=== PATIENT | female | born 1935 | race Caucasian/White ===

== ENCOUNTER 2018-03-30 18:47 | Outpatient (REF) | payer MEDICARE, SELFPAY ==
[2018-03-30 20:23] LABS: Bilirubin Negative (Negative); Blood Trace-intact (Negative); Clarity Sl Cloudy; Glucose Negative (Negative); Ketones Negative (Negative); Leukocyte Esterase Trace (Negative); Nitrite Negative (Negative); Urobilinogen 0.2 EU/dL (Up TO 0.2); pH 5.5 (5-8)
[2018-03-30 20:29] LABS: TSH (W/Ref FT4) 0.65 uIU/mL (0.358-3.74)
[2018-03-30 20:42] LABS: Bacteria Negative HPF (Negative); C & S Indicated? No/Sq. Contamination; Casts Negative LPF (Negative); Crystals Many Amorphous HPF (Negative); Epithelial Cells Moderate HPF (Negative); Mucus Negative (Negative); Other Cells Negative (Negative)
== END 2018-03-30 19:07 ==
LOC: NCHCN 18:47
PROVIDERS: PCP Nurse Practitioner Family; Visit Provider Nurse Practitioner Family
DX: E03.9 Hypothyroidism, unspecified (principal); N39.0 Urinary tract infection, site not specified
CPT/HCPCS: 81003; 81015; 84443

== ENCOUNTER → 2018-04-22 13:51 | Outpatient (BNVA) | payer MEDICARE, OTHER, SELFPAY | PROVIDERS: PCP Nurse Practitioner Family; Referring Provider Nurse Practitioner Family; Visit Provider Nurse Practitioner Gerontology | DX: R31.29 Other microscopic hematuria (principal) | CPT/HCPCS: 81003; 99204; 99215 ==

== ENCOUNTER 2018-04-27 00:43 | Outpatient (CLI) | payer MEDICARE, OTHER, SELFPAY ==
--- NOTE | 2018-04-27 09:03 | DI.CT_ITS ---
SYMPTOMS/DIAGNOSIS: MICROHEMATURIA, R31.21 CT SCAN OF THE ABDOMEN AND PELVIS: CT scan of the abdomen and pelvis was performed prior to and following the uneventful administration of intravenous contrast material. CT urogram was performed. There are no priors for comparison. Noncontrast CT scan was performed. There is artifact in the pelvis due to the patient's left total hip replacement. There is also slight patient motion artifact present. There is no evidence of nephrolithiasis, ureterolithiasis or hydronephrosis. No stones are seen in the urinary bladder. There is a gallstone present. Following contrast administration, venous imaging of the abdomen and pelvis was performed. No acute infiltrates are seen in the lung bases. Note is made of a small hiatal hernia. The liver is normal in size. No suspicious hepatic masses are seen. The portal and superior mesenteric veins are unremarkable. There is no biliary ductal dilatation present. The pancreas, spleen and adrenal glands are unremarkable. There are multiple bilateral simple renal cysts present. No solid renal mass is seen. There is normal and symmetric enhancement of the kidneys. The reproductive organs are unremarkable. There is atherosclerosis of the abdominal aorta, but no aneurysmal dilatation is present. No significant abdominal or pelvic adenopathy, ascites or pneumoperitoneum is present. There is a moderate amount of retained stool in the colon. There is mild increased attenuation surrounding portions of the ascending and descending colon and a question of mild bowel wall thickening present. A mild colitis should be considered. This may be inflammatory or infectious in nature. Moderately severe degenerative changes are seen in the lumbar spine. 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 There is also severe central spinal canal stenosis present. Delayed images of the abdomen and pelvis were performed. Incidental note is made of a right nearly complete duplicated collecting system. There is opacification of the collecting systems in their entirety. No evidence of obstruction is seen. Within the urinary bladder, no filling defects are appreciated. The urinary bladder wall appears unremarkable. IMPRESSION: 1. No evidence of nephrolithiasis or hydronephrosis. 2. 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 3. Cholelithiasis. No biliary ductal dilatation. 4. Question of mild pericolonic inflammatory changes in the ascending and descending colon suspicious for inflammatory or infectious colitis. Please correlate clinically. 5. Bilateral renal cysts. No evidence of a solid renal mass. 6. Moderately severe degenerative changes in the lumbar spine resulting in central spinal canal and neural foraminal stenosis. The findings are most marked at L4-L5.
[2018-04-27 09:36] LABS: CREATININE 0.67 mg/dL (0.55-1.02)
[2018-04-27] MEDS: Omnipaque 350 MG/ML 100 ML BTL IJ (10:08)
== END 2018-04-27 01:03 ==
PROVIDERS: PCP Nurse Practitioner Family; Visit Provider Nurse Practitioner Gerontology
DX: R31.21 Asymptomatic microscopic hematuria (principal); K80.20 Calculus of gallbladder without cholecystitis without obstruction; M47.816 Spondylosis without myelopathy or radiculopathy, lumbar region; Z13.89 Encounter for screening for other disorder
CPT/HCPCS: 74178; 82565; J3490

== ENCOUNTER → 2018-05-03 15:22 | Outpatient (BNVA) | payer MEDICARE, OTHER, SELFPAY | PROVIDERS: PCP Nurse Practitioner Family; Visit Provider Nurse Practitioner Gerontology | DX: Z71.2 Person consulting for explanation of examination or test findings (principal); R31.29 Other microscopic hematuria; N28.1 Cyst of kidney, acquired | CPT/HCPCS: 99213 ==

== ENCOUNTER 2018-05-20 06:17 | Day surgery (SDC) | payer MEDICARE, OTHER, SELFPAY ==
[2018-05-20 06:38] VITALS: BP 104/55; PULSE 80; RESP 18; TEMP 36.6; O2SAT 97
[2018-05-20] MEDS: Lactated Ringers 1,000 ML 80 ML IV (06:45)
[2018-05-20] MEDS: Sulfameth/Trimeth DS TAB 1 TAB PO (06:55)
[2018-05-20] MEDS: Lidocaine 2% Jelly 6 ML SYR (07:50)
--- NOTE | 2018-05-20 08:02 | PDOC.DSDIS_ITS ---
Discharge Plan Disposition Patient Disposition: HOME Condition: Stable Discharge Details Reason For Visit: MICROHEMATURIA Attending Provider: Robert Wise Primary Care Provider: Lelia Roque Home Meds and New Rx's Prescriptions: No Action ciprofloxacin HCl 100 mg tablet 100 mg PO .qhs RF: 0 diphenhydramine HCl [Shikha-[place] Plus Allergy] 25 MG tablet 25 mg PO PRN RF: 0 levothyroxine 112 mcg Capsule 112 mcg PO DAILY RF: 0 aspirin [Aspir-81] 81 mg Tablet,Delayed Release (Dr/Ec) 81 mg PO DAILY RF: 0 Discharge Instructions Additional Instructions: Pt will need yearly urinalysis (either with PCP or with our office) Activity:: Activity as Tolerated Diet:: As Tolerated Discharge Orders Discharge Orders: Discharge Order (Routine); Ordered 05/20/18 Ordered By: Robert Wise
[2018-05-20] MEDS: Phenazopyridine 200 MG TAB PO (08:24)
[2018-05-20 08:39] VITALS: BP 108/52; PULSE 57; RESP 18; TEMP 36.4; O2SAT 97
--- NOTE | 2018-05-20 10:19 | ROE_ITS ---
REPORT OF OPERATIVE PROCEDURE DATE OF PROCEDURE May 20, 2018 PREOPERATIVE DIAGNOSIS Microscopic hematuria. POSTOPERATIVE DIAGNOSIS Microscopic hematuria. PROCEDURE Cystoscopy. SURGEON Robert Wise M.D. ANESTHESIA MAC with local. COMPLICATIONS None. ESTIMATED BLOOD LOSS Minimal. HISTORY This is an 82-year-old woman who is identified as having microscopic hematuria. She was evaluated wit h a CT urogram, which showed some simple renal cysts, but no solid masses and no stones. She presents now for cystoscopy to complete her hematuria workup. OPERATIVE REPORT The patient was brought to the Operating Room on 05/20/2018. She was given Monitored Anesthesia Care and placed in the dorsal lithotomy position. Her genitalia was prepped. A #17-Iraqi rigid cystoscope was passed through the urethra, into the bladder. The bladder was inspe cted using both a 30 and a 70-degree lens. The base of the bladder had descended somewhat consistent with a small cystocele. There were some in flammatory changes in the mucosa visible between the trigone and urethral meatus. These had the phys ical appearance of cystitis cystica. Both ureteral orifices appeared normal. The remainder of the bladder showed no papillary or nodular l esions. Both ureteral orifices showed clear urine effluxing. These findings were all confirmed with re-inspec tion of the bladder using a 30-degree lens. The bladder was emptied and the cystoscope was withdrawn. Pelvic examination revealed a very small ca runcle. Based on today's examination, there is no evidence of significant uropathology. The current AUA recom mendation includes a yearly urinalysis and a repeat workup in three to five years if the hematuria pe rsists. CC: Lelia Roque N.P.
== END 2018-05-20 09:45 | disposition home or self-care (01) ==
PROVIDERS: PCP Nurse Practitioner Family; Visit Provider Urology
PROC: 0TJB8ZZ Inspection of Bladder, Via Natural or Artificial Opening Endoscopic (ICD-10-PCS; CPT 52000; principal; 2018-05-20 07:30)
DX: R31.29 Other microscopic hematuria (principal); F17.210 Nicotine dependence, cigarettes, uncomplicated
CPT/HCPCS: 52000

== ENCOUNTER 2018-05-31 08:31 | Day surgery (SDC) | payer MEDICARE, OTHER, SELFPAY ==
--- NOTE | 2018-05-30 16:58 | POEE_ITS ---
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 She presented with complaints of progressive decreased vision in both eyes at both distance and near. On examination she was noted to have significant bilateral nuclear cortical and posterior subcapsular cataracts, as well as epiretinal membranes OU with macular pigmentary changes. The option of cataract surgery was offered to the patient and she wished to proceed, understanding that postoperative visual acuity will be limited by the pre-existing maculopathy. NOTE: The Chief Complaint, HPI, Past Medical History, Past Surgical History, Family History, Social History, Medications, and complete Ophthalmic Exam with detailed Assessment and Plan have already been documented in the patient's outpatient ophthalmic record and are not covered again in detail here. PFSH Medical History Cortical cataract of right eye (Acute) Epiretinal membrane (ERM) of right eye (Chronic) Nuclear sclerotic cataract of right eye (Acute) Posterior subcapsular age-related cataract, right eye (Acute) Social History Smoking/Tobacco Use Status: Current every day Meds Home Medications Medication Instructions Recorded Confirmed Type diphenhydramine HCl [Shikha-[place] 25 mg PO PRN 03/30/17 05/28/18 History Plus Allergy] ciprofloxacin 100 mg tablet 100 mg PO .qhs tab 04/22/18 05/03/18 History aspirin [Aspir-81] 81 mg PO DAILY 05/18/18 05/28/18 History levothyroxine 112 mcg PO DAILY 05/18/18 05/28/18 History Allergies Allergy/AdvReac Type Severity Reaction Status Date / Time No Known Allergies Allergy Unverified 05/20/18 06:24 Exam OCULAR EXAM:: Most recent ocular examination reveals corrected visual acuity of 20/50 right eye, 20/40 left eye. Pupils equal, round, and reactive without afferent pupillary defect. Intraocular pressure is 12 OD, 13 OS. Extraocular motility is normal. Slit-lamp examination reveals pupil dilating to 5.5 mm OU. 2+ nuclear with 2+ cortical and 2+ posterior subcapsular cataracts OU with poor red reflex inferiorly. Dilated funduscopic examination shows disc cupping of 0.4 OU with good color. The retinal vasculature is normal. Both maculae show epiretinal membranes with a granular appearance. Peripheral retina and vitreous is normal. BRIGHTNESS ACUITY TESTING (BAT):: Brightness acuity testing of the right eye is 20/50. Low is 20/60. Medium is 20/60. Height is 20/100. Assessment and Plan (1) Posterior subcapsular age-related cataract, right eye: Current visit: No Status: Acute Assessment: Visually significant cataract, right eye. Plan: Cataract extraction with intraocular lens implantation, right eye (2) Nuclear sclerotic cataract of right eye: Current visit: No Status: Acute Assessment: Visually significant cataract, right eye. Plan: Cataract extraction with intraocular lens implantation, right eye (3) Cortical cataract of right eye: Current visit: No Status: Acute Assessment: Visually significant cataract, right eye. Plan: Cataract extraction with intraocular lens implantation, right eye Note: NOTE:: The details of the planned surgery, including the risks, indications,limitations,expectations,outcome and possible complications were explained to the patient. The patient understands the complications including, but not limited to: infection, hemorrhage, posterior dislocation of the lens or nuclear fragments which may require the intervention of a vitreoretinal surgeon, possible loss of the eye, or from anesthetic complications. The patient has been made aware of the option of not having surgery, that vision following surgery may not be equal to that prior to surgery, and that the planned surgery may not achieve the intended results. Following this discussion, which the patient appeared to understand, the patient wishes to proceed with cataract surgery with lens implantation of the affected eye to improve and maximize vision.
[2018-05-31 08:46] VITALS: BP 114/60; PULSE 73; RESP 18; TEMP 36.4; O2SAT 99
[2018-05-31] MEDS: Tropicam./Phenyleph. (1/2.5%) 5 ML BTL OD ×3 (08:57→09:06)
[2018-05-31] MEDS: Tetracaine 0.5% 4 ML BTL OD ×4 (08:57→09:45)
[2018-05-31] MEDS: Lidocaine 2% Jelly 6 ML SYR (09:45)
[2018-05-31] MEDS: Lidocaine 1% Pres-Free 5 ML VIAL (09:49)
[2018-05-31] MEDS: Balanced Salt Soln.-PLUS 500 ML BAG (09:49)
[2018-05-31] MEDS: Povidone-Iodine Ophth 30 ML BTL (09:53)
[2018-05-31] MEDS: Trypan Blue 0.06% 0.5 ML SYR (09:54)
--- NOTE | 2018-05-31 10:15 | W.PM.DSUDISC ---
Discharge Plan Discharge Details Attending Provider: Ivan Al Primary Care Provider: Lelia Roque Home Meds and New Rx's Prescriptions: No Action ciprofloxacin HCl 100 mg tablet 100 mg PO .qhs RF: 0 diphenhydramine HCl [Shikha-[place] Plus Allergy] 25 MG tablet 25 mg PO PRN RF: 0 levothyroxine 112 mcg Capsule 112 mcg PO DAILY RF: 0 aspirin [Aspir-81] 81 mg Tablet,Delayed Release (Dr/Ec) 81 mg PO DAILY RF: 0 Discharge Instructions Stand Alone Forms: Post-op Topical Cataract, William Carranza (DSU) DS: Diagnosis Discharge Diagnosis (1) Status post cataract extraction and insertion of intraocular lens of right eye: Status: Chronic
--- NOTE | 2018-05-31 10:18 | ROE_ITS ---
Date of service: 05/31/18 Time of Service: 10:17 Operative Note DATE OF PROCEDURE: 05/31/18 PRE-OP DIAGNOSIS: Cataract, right eye, with poor red reflex PROCEDURE: Cataract extraction using phacoemulsification with intraocular lens implantation, right eye, using capsular staining with Vision Blue SURGEON: vIan Al ANESTHESIA: MAC (with local sub-tenon's anesthetic injection) PATHOLOGY: none sent COMPLICATIONS: None Patient was transported to: same day Patient's condition: stable Implants: Olivier and Olivier / [employer] Tecnis [id number] Indications: Progressive visual loss due to cataract, right eye Procedure Description: CATARACT SURGERY OPERATIVE REPORT PREOPERATIVE DIAGNOSIS: 1. Nuclear/cortical/posterior subcapsular cataract, right eye 2. Poor red reflex secondary to #1 POSTOPERATIVE DIAGNOSIS: Same OPERATION: 1. Cataract extraction using phacoemulsification with posterior chamber intraocular lens implant, right eye. 2. Capsular staining with Vision Blue IOL: IOL Biodiesel Engineering Manager/Model: Olivier & Olivier / MANJEET Tecnis [id number] IOL Power: + 23.50 diopters IOL Serial Number: [id number] Optic Diameter: 6.0mm Haptic/Overall Diameter: 13.0mm PHACO INFO: Byron StoredIQurion Vision System with OZil and Active Fluidics Cumulative Dispersed Energy (CDE): 8.66 seconds SURGEON: Ivan Al MD, SHAMA ANESTHESIA: Monitored Anesthesia Care (MAC), with local sub-tenon's anesthetic infiltration COMPLICATIONS: None SPECIMENS: None INDICATIONS FOR PROCEDURE: The patient is an 82-year old lady with history of diminished visual acuity in her right eye who was noted to have a significant nuclear cortical and posterior subcapsular cataract with visual acuity of 20/50. The option of cataract surgery was offered to the patient and she wished to proceed. PROCEDURE: The correct surgical eye was identified and marked as the right eye and the pupil was dilated in the preoperative area using mydriatics, cycloplegics, and NSAIDS (except in aspirin allergic patients). The dilated pupil size was 6.5 mm. Oral sedation was administered in the form of an Imprimis MKO Melt (midazolam 3mg/ketamine 25mg/ondansetron 2mg). The patient was brought to the operating room where cardiopulmonary monitoring was instituted and surgical time-out was performed, confirming the correct operative eye and IOL power. Topical anesthesia was administered and ophthalmic povidone-iodine 5% was instilled into the conjunctival fornices. Lidocaine gel was applied to the corn ea and the donovan-ocular area was prepped with Betadine 10% solution and draped in the usual sterile fashion for intraocular surgery, including an aperture drape. A Tegaderm transparent film dressing was cut in half and used to cover the lashes and lid margins. Care was taken to sequester the lashes and lid margins under the Tegaderm dressing. A lid speculum was placed between the lids of the operative eye and the James-Ramila operating microscope was maneuvered into position. Meena scissors were then used to make a conjunctival buttonhole approximately 6mm posterior to the limbus in the inferonasal quadrant. Blunt dissection was carried out to expose bare sclera, and a blunt-tipped sub-tenon?s anesthesia cannula was introduced and passed posteriorly along the globe where non-preserve d plain lidocaine was injected into posterior sub-Tenon?s space. A sideport knife was used to make a paracentesis port at the 7:00 position. Air was injected into the anterior chamber, followed by Vision Blue, which was painted over the anterior capsule and then irrigated out with BSS. The anterior chamber was filled with Healon GV. A 2.4mm keratome knife was used to create a half- thickness groove at the limbus and then to construct a three-plane near-clear corneal tunnel extending 2.0mm into clear cornea at the 10:00 position. A flap was raised on the anterior capsule and capsulorhexis forceps were used to complete a continuous curvilinear capsulorhexis of 5.0 mm. Balanced salt solution was then used to perform cortical cleaving hydrodissection and nuclear hydrodelineation until the lens could be freely rotated within the capsular bag. The lens nucleus was then disassembled and removed within the capsular bag and iris plane using phacoemulsification. Residual cortical material was removed using the 45-degree angled silicone I/A tip with 0.3mm port. The posterior capsule was carefully polished to remove as much residual lens epithelial cells as safely possible. The capsular bag was then inflated and the anterior chamber deepened with viscoelastic. The lens implant described above was inserted into the capsular bag using the MANJETE Koi Injector. A Kuglen hook was used to dial the IOL into position. Residual viscoelastic was then removed first from posterior to the IOL, then from the anterior chamber using the I/A handpiece. The lens implant was noted to center nicely within the capsular bag. The incisions were stromally hydrated, and the anterior chamber was reformed using BSS. Then 0.4cc of moxifloxacin 1.5mg/ml were injected into the capsular bag and anterior chamber. The incisions were checked with a Weck spear and found to be secure. Several drops of ophthalmic povidone-iodine 5% were then applied to the eye followed by two drops of Imprimis combination moxifloxacin/dexamethasone solution. The drapes were removed and a clear plastic protective eye shield was placed over the eye. The patient was then returned to Same Day Surgery in stable condition.
[2018-05-31 10:50] VITALS: BP 100/59; PULSE 60; RESP 18; TEMP 36.4; O2SAT 96
== END 2018-05-31 10:55 | disposition home or self-care (01) ==
LOC: SUR 08:32
PROVIDERS: PCP Nurse Practitioner Family; Visit Provider Ophthalmology
PROC: (CPT 66982; principal; 2018-05-31 10:30)
DX: H25.811 Combined forms of age-related cataract, right eye (principal); H35.89 Other specified retinal disorders; F17.210 Nicotine dependence, cigarettes, uncomplicated
CPT/HCPCS: 66982; V2632

== ENCOUNTER 2018-06-11 07:47 | Day surgery (SDC) | payer MEDICARE, OTHER, SELFPAY ==
--- NOTE | 2018-06-10 08:10 | W.PIPPEYE ---
History of Present Illness Chief Complaint: Progressive decreased vision, left eye Narrative: Patient is an 82-year-old lady with history of bilateral cataracts with epiretinal membrane of the right eye. She underwent cataract surgery in the right eye on 05/31/2018 for symptomatic nuclear cortical and posterior subcapsular cataract. Uncorrected visual acuity now measures 20/30 in the right eye. She has a significant nuclear cortical and posterior subcapsular cataract in the left eye with visual acuity of 20/40. She now presents for cataract surgery OS. NOTE: The Chief Complaint, HPI, Past Medical History, Past Surgical History, Family History, Social History, Medications, and complete Ophthalmic Exam with detailed Assessment and Plan have already been documented in the patient's outpatient ophthalmic record and are not covered again in detail here. [facility] Medical History Cortical cataract of left eye (Acute) Nuclear sclerotic cataract of left eye (Acute) Posterior subcapsular age-related cataract of left eye (Acute) Epiretinal membrane (ERM) of left eye (Chronic) Epiretinal membrane (ERM) of right eye (Chronic) Cortical cataract of right eye (Resolved) Nuclear sclerotic cataract of right eye (Resolved) Posterior subcapsular age-related cataract, right eye (Resolved) Surgical History Status post cataract extraction and insertion of intraocular lens of right eye (Chronic 05/31/18) Social History Smoking/Tobacco Use Status: Current every day Meds Home Medications Medication Instructions Recorded Confirmed Type diphenhydramine HCl [Shikha-[place] 25 mg PO PRN 03/30/17 05/31/18 History Plus Allergy] ciprofloxacin 100 mg tablet 100 mg PO .qhs tab 04/22/18 05/03/18 History aspirin [Aspir-81] 81 mg PO DAILY 05/18/18 05/31/18 History levothyroxine 112 mcg PO DAILY 05/18/18 05/31/18 History Allergies Allergy/AdvReac Type Severity Reaction Status Date / Time No Known Allergies Allergy Unverified 05/31/18 08:42 Exam OCULAR EXAM:: Most recent ocular examination is significant for uncorrected vision of 20/30 right eye, corrected vision 20/40 left eye. Intraocular pressure is 13 OD, 13 OS. Pupils equal, round, and reactive without afferent pupillary defect extraocular motility is normal. Slit-lamp examination is significant for pupils dilating to 5.5 mm OU. Well-positioned PCIOL OD is clear posterior capsule. 2+ nuclear/cortical with central posterior subcapsular cataract in the left eye with poor red reflex inferiorly. Funduscopic examination shows disc cupping of 0.4 OU with normal vessels. Both maculas are granular in appearance with an epiretinal membrane. Peripheral retina and vitreous is normal OU. BRIGHTNESS ACUITY TESTING (BAT):: Brightness acuity testing of the left eye off is 20/40. Low 20/50. Medium 20/60. High 20/200. Assessment and Plan (1) Epiretinal membrane (ERM) of left eye: Current visit: No Status: Chronic (2) Posterior subcapsular age-related cataract of left eye: Current visit: No Status: Acute Assessment: Visually significant cataract, left eye. Plan: Cataract extraction with intraocular lens implantation, left eye (3) Nuclear sclerotic cataract of left eye: Current visit: No Status: Acute Assessment: Visually significant cataract, left eye. Plan: Cataract extraction with intraocular lens implantation, left eye (4) Cortical cataract of left eye: Current visit: No Status: Acute Assessment: Visually significant cataract, left eye. Plan: Cataract extraction with intraocular lens implantation, left eye Note: NOTE:: The details of the planned surgery, including the risks, indications,limitations,expectations,outcome and possible complications were explained to the patient. The patient understands the complications including, but not limited to: infection, hemorrhage, posterior dislocation of the lens or nuclear fragments which may require the intervention of a vitreoretinal surgeon, possible loss of the eye, or from anesthetic complications. The patient has been made aware of the option of not having surgery, that vision following surgery may not be equal to that prior to surgery, and that the planned surgery may not achieve the intended results. Following this discussion, which the patient appeared to understand, the patient wishes to proceed with cataract surgery with lens implantation of the affected eye to improve and maximize vision.
[2018-06-11 08:00] VITALS: BP 105/64; PULSE 80; RESP 16; TEMP 36.5; O2SAT 97
[2018-06-11] MEDS: Tetracaine 0.5% 4 ML BTL OS ×4 (08:08→09:35)
[2018-06-11] MEDS: Tropicam./Phenyleph. (1/2.5%) 5 ML BTL OS ×3 (08:09→08:17)
[2018-06-11] MEDS: Povidone-Iodine Ophth 30 ML BTL (09:34)
[2018-06-11] MEDS: Trypan Blue 0.06% 0.5 ML SYR (09:34)
[2018-06-11] MEDS: Lidocaine 2% Jelly 6 ML SYR (09:34)
[2018-06-11] MEDS: Lidocaine 1% Pres-Free 5 ML VIAL (09:34)
[2018-06-11] MEDS: Balanced Salt Soln.-PLUS 500 ML BAG (09:34)
[2018-06-11] MEDS: Triamcinolone 40 MG/ML VIAL (09:50)
--- NOTE | 2018-06-11 09:58 | PDOC.DSDIS_ITS ---
Discharge Plan Discharge Details Reason For Visit: CATARACT OS Attending Provider: Ivan Al Primary Care Provider: Lelia Roque Home Meds and New Rx's Prescriptions: No Action ciprofloxacin HCl 100 mg tablet 100 mg PO .qhs RF: 0 diphenhydramine HCl [Shikha-[place] Plus Allergy] 25 MG tablet 25 mg PO PRN RF: 0 levothyroxine 112 mcg Capsule 112 mcg PO DAILY RF: 0 aspirin [Aspir-81] 81 mg Tablet,Delayed Release (Dr/Ec) 81 mg PO DAILY RF: 0 Discharge Instructions Stand Alone Forms: Post-op Topical Cataract, William Carranza (DSU) DS: Diagnosis Discharge Diagnosis (1) Status post cataract extraction and insertion of intraocular lens of left eye: Status: Chronic
--- NOTE | 2018-06-11 09:58 | W.PM.OP ---
Date of service: 06/11/18 Time of Service: 09:58 Operative Note DATE OF PROCEDURE: 06/11/18 PRE-OP DIAGNOSIS: Cataract, left eye, with poor red reflex POST-OP DIAGNOSIS: same PROCEDURE: Cataract extraction using phacoemulsification with intraocular lens implant, left eye, using capsular staining with Vision Blue SURGEON: Ivan Al ANESTHESIA: MAC (with local sub-tenon's anesthetic injection) COMPLICATIONS: None Patient was transported to: same day Patient's condition: stable Implants: Olivier and Olivier / [employer] Tecnis [id number] Indications: Progressive decreased vision due to cataract, left eye, with poor red reflex Procedure Description: CATARACT SURGERY OPERATIVE REPORT PREOPERATIVE DIAGNOSIS: 1. Nuclear/cortical/posterior subcapsular cataract, left eye 2. Poor red reflex secondary to #1 POSTOPERATIVE DIAGNOSIS: Same OPERATION: 1. Cataract extraction using phacoemulsification with posterior chamber intraocular lens implant, left eye. 2. Capsular staining with Vision Blue IOL: IOL Economics Department Chair/Model: Olivier & Olivier / MANJEET Tecnis [id number] IOL Power: + 23.0 diopters IOL Serial Number: [id number] Optic Diameter: 6.0 mm Haptic/Overall Diameter: 13.0 mm PHACO INFO: Byron [employer]ion Vision System with OZil and Active Fluidics Cumulative Dispersed Energy (CDE): 7.65 seconds SURGEON: Ivan Al MD, SHAMA ANESTHESIA: Monitored A [facility] Care (MAC), with local sub-tenon's anesthetic infiltration COMPLICATIONS: None SPECIMENS: None INDICATIONS FOR PROCEDURE: The patient is an 82-year-old lady with history of progressive decreased vision in both eyes secondary to the development of bilateral nuclear cortical and posterior subcapsular cataract. She has already undergone cataract surgery in her right eye on 05/31/2018 and is doing well postoperatively. She now presents for cataract surgery of the left eye PROCEDURE: The correct surgical eye was identified and marked as the left eye and the pupil was dilated in the preoperative area using mydriatics and cycloplegics. The dilated pupil size was 7.0 mm. Oral sedation was administered in the form of an Imprimis MKO Melt (midazolam 3mg/ketamine 25mg/ondansetron 2mg). The patient was brought to the operating room where cardiopulmonary monitoring was instituted and surgical time-out was performed, confirming the correct operative eye and IOL power. Topical anesthesia was administered and ophthalmic povidone-iodine 5% was instilled into the conjunctival fornices. Lidocaine gel was applied to the cornea and the donovan-ocular area was prepped with Betadine 10% solution and draped in the usual sterile fashion for intraocular surgery, including an aperture drape. A Tegaderm transparent film dressing was cut in half and used to cover the lashes and lid margins. Care was taken to sequester the lashes and lid margins under the Tegaderm dressing. A lid speculum was placed between the lids of the operative eye and the James-Ramila operating microscope was maneuvered into position. Meena scissors were then used to make a conjunctival buttonhole approximately 6mm posterior to the limbus in the inferonasal quadrant. Blunt dissection was carried out to expose bare sclera, and a blunt-tipped sub-tenon?s anesthesia cannula was introduced and passed posteriorly along the globe where non-preserved plain lidocaine was injected into posterior sub-Tenon?s space. A sideport knife was used to make a paracentesis port at the 12:00 position. Air was injected into the anterior chamber, followed by Vision Blue, which was painted over the anterior capsule and then irrigated out using BSS. The anterior chamber was filled with Healon GV. A 2.4mm keratome knife was used to create a half-thickness groove at the limbus and then to construct a three-plane near-clear corneal tunnel extending 2.0mm into clear cornea at the 3:00 position. A flap was raised on the anterior capsule and capsulorhexis forceps were used to complete a continuous curvilinear capsulorhexis of 5.0 mm. Balanced salt solution was then used to perform cortical cleaving hydrodissection and nuclear hydrodelineation until the lens could be freely rotated within the capsular bag. The lens nucleus was then disassembled and removed within the capsular bag and iris plane using phacoemulsification. Residual cortical material was removed using the 45-degree angled silicone I/A tip with 0.3mm port. The posterior capsule was carefully polished to remove as much residual lens epithelial cells as safely possible. The capsular bag was then inflated and the anterior chamber deepened with viscoelastic. The lens implant described above was inserted into the capsular bag using the MANJEET [place] Injector. A Kuglen hook was used to dial the IOL into position. Residual viscoelastic was then removed first from posterior to the IOL, then from the anterior chamber using the I/A handpiece. The lens implant was noted to center nicely within the capsular bag. The incisions were stromally hydrated, and the anterior chamber was reformed using BSS. Then 0.4cc of moxifloxacin 1.5mg/ml were injected into the capsular bag and anterior chamber. The incisions were checked with a Weck spear and found to be secure. Then, a 1cc mixture of 20mg triamcinolone and 2.5mg moxifloxacin was injected into posterior sub-tenons space using the Rodrigo subtenons anesthesia cannual. Several drops of ophthalmic povidone-iodine 5% were then applied to the eye followed by two drops of Imprimis combination moxifloxacin/dexamethasone solution. The drapes were removed and a clear plastic protective eye shield was placed over the eye. The patient was then returned to Same Day Surgery in stable condition.
--- NOTE | 2018-06-11 10:02 | ROE_ITS ---
Date of service: 06/11/18 Time of Service: 09:58 Operative Note DATE OF PROCEDURE: 06/11/18 PRE-OP DIAGNOSIS: Cataract, left eye, with poor red reflex POST-OP DIAGNOSIS: same PROCEDURE: Cataract extraction using phacoemulsification with intraocular lens implant, left eye, using capsular staining with Vision Blue SURGEON: vIan Al ANESTHESIA: MAC (with local sub-tenon's anesthetic injection) COMPLICATIONS: None Patient was transported to: same day Patient's condition: stable Implants: Olivier and Olivier / [employer] Tecnis [id number] Indications: Progressive decreased vision due to cataract, left eye, with poor red reflex Procedure Description: CATARACT SURGERY OPERATIVE REPORT PREOPERATIVE DIAGNOSIS: 1. Nuclear/cortical/posterior subcapsular cataract, left eye 2. Poor red reflex secondary to #1 POSTOPERATIVE DIAGNOSIS: Same OPERATION: 1. Cataract extraction using phacoemulsification with posterior chamber intraocular lens implant, left eye. 2. Capsular staining with Vision Blue IOL: IOL Maintenance Instructor/Model: Olivier & Olivier / MANJEET Tecnis [id number] IOL Power: + 23.0 diopters IOL Serial Number: [id number] Optic Diameter: 6.0 mm Haptic/Overall Diameter: 13.0 mm PHACO INFO: Byron [employer] Vision System with OZil and Active Fluidics Cumulative Dispersed Energy (CDE): 7.65 seconds SURGEON: Ivan Al MD, SHAMA ANESTHESIA: Monitored A [facility] Care (MAC), with local sub-tenon's anesthetic infiltration COMPLICATIONS: None SPECIMENS: None INDICATIONS FOR PROCEDURE: The patient is an 82-year-old lady with history of progressive decreased vision in both eyes secondary to the development of bilateral nuclear cortical and posterior subcapsular cataract. She has already undergone cataract surgery in her right eye on 05/31/2018 and is doing well postoperatively. She now presents for cataract surgery of the left eye PROCEDURE: The correct surgical eye was identified and marked as the left eye and the pupil was dilated in the preoperative area using mydriatics and cycloplegics. The dilated pupil size was 7.0 mm. Oral sedation was administered in the form of an Imprimis MKO Melt (midazolam 3mg/ketamine 25mg/ondansetron 2mg). The patient was brought to the operating room where cardiopulmonary monitoring was instituted and surgical time-out was performed, confirming the correct operative eye and IOL power. Topical anesthesia was administered and ophthalmic povidone-iodine 5% was instilled into the conjunctival fornices. Lidocaine gel was applied to the cornea and the donovan-ocular area was prepped with Betadine 10% solution and draped in the usual sterile fashion for intraocular surgery, including an a perture drape. A Tegaderm transparent film dressing was cut in half and used to cover the lashes and lid margins. Care was taken to sequester the lashes and lid margins under the Tegaderm dressing. A lid speculum was placed between the lids of the operative eye and the James-Ramila operating microscope was maneuvered into position. Meena scissors were then used to make a conjunctival buttonhole approximately 6mm posterior to the limbus in the inferonasal quadrant. Blunt dissection was carried out to expose bare sclera, and a blunt-tipped sub-tenon?s anesthesia cannula was introduced and passed posteriorly along the globe where non- preserved plain lidocaine was injected into posterior sub-Tenon?s space. A sideport knife was used to make a paracentesis port at the 12:00 position. Air was injected into the anterior chamber, followed by Vision Blue, which was painted over the anterior capsule and then irrigated out using BSS. The anterior chamber was filled with Healon GV. A 2.4mm keratome knife was used to create a half-thickness groove at the limbus and then to construct a three-plane near-clear corneal tunnel extending 2.0mm into clear cornea at the 3:00 position. A flap was raised on the anterior capsule and capsulorhexis forceps were used to complete a continuous curvilinear capsulorhexis of 5.0 mm. Balanced salt solution was then used to perform cortical cleaving h ydrodissection and nuclear hydrodelineation until the lens could be freely rotated within the capsular bag. The lens nucleus was then disassembled and removed within the capsular bag and iris plane using phacoemulsification. Residual cortical material was removed using the 45-degree angled silicone I/A tip with 0.3mm port. The posterior capsule was carefully polished to remove as much residual lens epithelial cells as safely possible. The capsular bag was then inflated and the anterior chamber deepened with viscoelastic. The lens implant described above was inserted into the capsular bag using the MANJEET [place] Injector. A Kuglen hook was used to dial the IOL into position. Residual viscoelastic was then removed first from posterior to the IOL, then from the anterior chamber using the I/A handpiece. The lens implant was noted to center nicely within the capsular bag. The incisions were stromally hydrated, and the anterior chamber was reformed using BSS. Then 0.4cc of moxifloxacin 1.5mg/ml were injected into the capsular bag and anterior chamber. The incisions were checked with a Weck spear and found to be secure. Then, a 1cc mixture of 20mg triamcinolone and 2.5mg moxifloxacin was injected into posterior sub-tenons space using the Rodrigo subtenons anesthesia cannual. Several drops of ophthalmic povidone-iodine 5% were then applied to the eye followed by two drops of Imprimis combination moxifloxacin/dexamethasone solution. The drapes were removed and a clear plastic protective eye shield was placed over the eye. The patient was then returned to Same Day Surgery in stable condition.
== END 2018-06-11 10:30 | disposition home or self-care (01) ==
PROVIDERS: PCP Nurse Practitioner Family; Visit Provider Ophthalmology
PROC: (CPT 66982; principal; 2018-06-11 09:30)
DX: H25.812 Combined forms of age-related cataract, left eye (principal); H35.89 Other specified retinal disorders; Z98.41 Cataract extraction status, right eye; F17.210 Nicotine dependence, cigarettes, uncomplicated
CPT/HCPCS: 66982; V2632

== ENCOUNTER 2018-06-24 01:32 | Outpatient (CLI) | payer MEDICARE, OTHER, SELFPAY | END 2018-06-24 01:52 | PROVIDERS: PCP Nurse Practitioner Family; Visit Provider Nurse Practitioner Family | DX: I49.9 Cardiac arrhythmia, unspecified (principal); I49.1 Atrial premature depolarization; I47.1 Supraventricular tachycardia | CPT/HCPCS: 93225 ==

== ENCOUNTER 2018-06-28 08:48 | Outpatient (CLI) | payer MEDICARE, OTHER, SELFPAY ==
--- NOTE | 2018-06-28 11:10 | HOLTER_ITS ---
HOLTER MONITOR INTERPRETATION DATE OF DICTATION June 28, 2018 STUDY INDICATION Arrhythmia. REQUESTING PROVIDER Lelia Roque N.P. FINDINGS The patient was monitored for one day and 23 hours. Baseline rhythm normal sinus rhythm. Average heart rate 68 beats per minute. Range 51 to 104 beats per minute. 3 PVCs, no VT. 281 PACs, 13 atrial runs, longest 7 beats, fastest 163 beats per minute. No pauses greater than 3 seconds. No higher degree heart block. SYMPTOMS No symptoms reported. FINAL INTERPRETATION Occasional bursts of supraventricular tachycardia, asymptomatic. Ulises Perez M.D. LESLEY/yasir T - 06/28/2018
== END 2018-06-28 09:08 ==
PROVIDERS: PCP Nurse Practitioner Family; Visit Provider Nurse Practitioner Family
DX: I49.9 Cardiac arrhythmia, unspecified (principal); I49.1 Atrial premature depolarization; I47.1 Supraventricular tachycardia
CPT/HCPCS: 93227; 93226

== ENCOUNTER 2018-06-29 15:09 | Outpatient (REF) | payer MEDICARE, OTHER, SELFPAY ==
[2018-06-29 19:13] LABS: TSH (W/Ref FT4) 0.44 uIU/mL (0.358-3.74)
== END 2018-06-29 15:29 ==
LOC: NCHCN 15:09
PROVIDERS: PCP Nurse Practitioner Family; Visit Provider Nurse Practitioner Family
DX: E03.9 Hypothyroidism, unspecified (principal)
CPT/HCPCS: 84443

== ENCOUNTER → 2018-09-07 09:41 | Outpatient (BNVA) | payer MEDICARE, OTHER, SELFPAY | PROVIDERS: PCP Nurse Practitioner Family; Visit Provider Nurse Practitioner Adult Health | DX: G30.1 Alzheimer's disease with late onset (principal); F02.80 Dementia in other diseases classified elsewhere, unspecified severity, without behavioral disturbance, psychotic disturbance, mood disturbance, and anxiety | CPT/HCPCS: 99213 ==

== ENCOUNTER 2018-09-10 22:02 | Emergency (ER) | payer MEDICARE, OTHER, SELFPAY ==
[2018-09-10 22:06] VITALS: PULSE 95; RESP 18; TEMP 36.4; O2SAT 97
--- NOTE | 2018-09-10 22:06 | W.ED.GENAD ---
Discharge Plan Disposition Patient Disposition: HOME Condition: Good Discharge Details Chief Complaint: Orthopedic Clinical Impression: Closed fracture of right superior pubic ramus, Closed fracture of right inferior pubic ramus, Fall as cause of accidental injury at home as place of occurrence Primary Care Provider: Lelia Roque ED Provider: Kael Walker Home Meds and New Rx's Prescriptions: Continued diphenhydramine HCl [Shikha-Sedona Plus Allergy] 25 MG tablet 25 mg PO PRN RF: 0 levothyroxine 112 mcg Capsule 112 mcg PO DAILY RF: 0 Discharge Instructions Instructions: Pelvic Fracture (ED), Fall Prevention for Older Adults (ED) Additional Instructions: You broke the pubic rami on the right. This injury typically heals on its own. You are weightbearing as tolerated and should use a walker for support. Take Tylenol 1 g every 8 hours alternating with Motrin 400 mg every 8 hours. Contact primary care on Thursday for follow-up and physical therapy referral. Return to the ED over the weekend if any issues. Pain control and early mobilization are frey to recovery. Referrals: [facility] [Provider Group] - 09/13/18 Medical Decision Making Patient without complaints of. She states her hip no longer hurt. She has no tenderness anywhere that I can elicit. Spine is cleared clinically. I am able to range all 4 extremities without difficulty or pain. She denies loss of consciousness with the fall. She is not on blood thinners. She has normal mental status and nonfocal neuro exam. Attempted to get patient up from stretcher to walker. She was unable to walk because of pain in the right groin. Will obtain x-ray of the right hip and pelvis. Consideration for rami fracture entertained. 22:45 - X-ray of the right hip and pelvis negative for fracture per my review. Patient given Tylenol. Will attempt ambulation once again once preliminary radiology read comes back. 23:40 - unable to ambulate even after Tylenol but does say pain is better. Will get CT pelvis to look for fracture. 01:15 - CT did come back with nondisplaced fractures of the inferior and superior pubic rami on the right. We attempted to get patient up with a walker and she was able to take a few steps with Tylenol on board. She tolerates Motrin so we have given her a dose of Motrin and will attempt ambulation once again. If she is safe for discharge on Tylenol and Motrin with use of walker will do so. If not we will need to consider transfer for admission pain control and physical therapy evaluation as there are no beds here in the hospital. 01:35 -patient able to ambulate with a walker here in the department after Motrin. We are going to provide her with a walker to go home with. She lives with family who are willing to take care of her. She goes to [facility] so we will have to arrange follow-up with them. Does not necessarily need orthopedics referral unless problems. Needs PT referral and early mobilization. She is safe to ambulate with walker and is WBAT. Return to ED if any problems at home. HPI General Mode of arrival: EMS. Date/Time Provider Initiated Documentation: 09/10/18 22:06. Limitations to Documentation: other (dementia). Information obtained by: patient, EMS and old records reviewed. HPI Narrative: Patient brought in by ambulance after trip and fall at home. Patient was walking to her bedroom when her foot got caught on a carpet runner. She fell. She thinks she had her head but she did not have loss of consciousness. She was able to get up and walk to the bed. She complained of some hip pain and family called EMS. Patient arrives in no distress. She states she has no pain currently. She denies passing out. She denies any chest pain, rib pain, back pain, neck pain. She does have a history of dementia but seems fairly cognizant. Related Data Home Medications Medication Instructions Recorded Confirmed diphenhydramine HCl [Shikha-Sedona 25 mg PO PRN 03/30/17 09/10/18 Plus Allergy] levothyroxine 112 mcg PO DAILY 05/18/18 09/10/18 Allergies Allergy/AdvReac Type Severity Reaction Status Date / Time No Known Allergies Allergy Unverified 09/10/18 22:09 Review of Systems Review of Systems As documented in HPI otherwise negative as below. Const: no fever, chills, weakness Resp: no cough, SOB, pleuritic pain CV: no CP, diaphoresis, edema, syncope GI: no abdominal pain, nausea, vomiting, diarrhea Neuro: no headache, numbness, focal weakness, confusion [facility] Medical History Epiretinal membrane (ERM) of left eye (Chronic) Epiretinal membrane (ERM) of right eye (Chronic) Alzheimer's dementia (Chronic) Attention deficit disorder (ADD) (Chronic) H/O Randhawa's palsy (Chronic) History of tobacco use (Chronic) Hyperlipidemia (Chronic) Hypothyroidism (Chronic) Cortical cataract of left eye (Resolved) Cortical cataract of right eye (Resolved) Nuclear sclerotic cataract of left eye (Resolved) Nuclear sclerotic cataract of right eye (Resolved) Posterior subcapsular age-related cataract of left eye (Resolved) Posterior subcapsular age-related cataract, right eye (Resolved) Surgical History Status post cataract extraction and insertion of intraocular lens of left eye (Chronic 06/11/18) Status post cataract extraction and insertion of intraocular lens of right eye (Chronic 05/31/18) S/P hip replacement (Chronic) Social History Smoking/Tobacco Use Status: Former Tobacco Use Alcohol Intake: never Drug use: Never Do you feel safe at home: Yes Do you feel safe in your relationship?: Yes Exam Narrative Exam Narrative: 1. Const: WDWN female in NAD. 2. Eyes: No conjunctival injection or scleral icterus. 3. ENT: NC/AT. No facial swelling or tenderness. Mucous membranes moist. 4. Neck: Supple without adenopathy. Trachea midline. No c-spine tenderness. 5. CVS: +S1/S2, No murmurs or gallops. 6. RESP: Unlabored respiratory effort. Clear to auscultation bilaterally. No wheezes rales or rhonchi. No rib tenderness. No chest pain with compression. 7. GI: Soft, NT/ND, No guarding or rebound. 8. MSK: No C/C/E present. No deformity or tenderness noted. She has normal range of motion throughout her extremities including in her hips. She has no tenderness to the spine anywhere. No pain with compression of the pelvis. 9. Skin: Warm/dry, no lacs or abrasions 10. Neuro: A&O x3. 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 Sensation grossly intact, no focal neurologic deficits. 11. Psych: Appropriate mood and affect
--- NOTE | 2018-09-10 22:09 | ED.GENADUL_ITS ---
Discharge Plan Disposition Patient Disposition: HOME Condition: Good Discharge Details Chief Complaint: Orthopedic Clinical Impression: Closed fracture of right superior pubic ramus, Closed fracture of right inferior pubic ramus, Fall as cause of accidental injury at home as place of occurrence Primary Care Provider: Lelia Roque ED Provider: Kael Walker Home Meds and New Rx's Prescriptions: Continued diphenhydramine HCl [Shikha-[place] Plus Allergy] 25 MG tablet 25 mg PO PRN RF: 0 levothyroxine 112 mcg Capsule 112 mcg PO DAILY RF: 0 Discharge Instructions Instructions: Pelvic Fracture (ED), Fall Prevention for Older Adults (ED) Additional Instructions: You broke the pubic rami on the right. This injury typically heals on its own. You are weightbearing as tolerated and should use a walker for support. Take Tylenol 1 g every 8 hours alternating with Motrin 400 mg every 8 hours. Contact primary care on Thursday for follow-up and physical therapy referral. Return to the ED over the weekend if any issues. Pain control and early mobilization are frey to recovery. Referrals: [facility] [Provider Group] - 09/13/18 Medical Decision Making Patient without complaints of. She states her hip no longer hurt. She has no tenderness anywhere that I can elicit. Spine is cleared clinically. I am able to range all 4 extremities without difficulty or pain. She denies loss of consciousness with the fall. She is not on blood thinners. She has normal mental status and nonfocal neuro exam. Attempted to get patient up from stretcher to walker. She was unable to walk because of pain in the right groin. Will obtain x-ray of the right hip and pelvis. Consideration for rami fracture entertained. 22:45 - X-ray of the right hip and pelvis negative for fracture per my review. Patient given Tylenol. Will attempt ambulation once again once preliminary radiology read comes back. 23:40 - unable to ambulate even after Tylenol but does say pain is better. Will get CT pelvis to look for fracture. 01:15 - CT did come back with nondisplaced fractures of the inferior and superior pubic rami on the right. We attempted to get patient up with a walker and she was able to take a few steps with Tylenol on board. She tolerates Motrin so we have given her a dose of Motrin and will attempt ambulation once again. If she is safe for discharge on Tylenol and Motrin with use of walker will do so. If not we will need to consider transfer for admission pain control and physical therapy evaluation as there are no beds here in the hospital. 01:35 -patient able to ambulate with a walker here in the department after Motrin. We are going to provide her with a walker to go home with. She lives with family who are willing to take care of her. She goes to [facility] so we will have to arrange follow-up with them. Does not necessarily need orthopedics referral unless problems. Needs PT referral and early mobilization. She is safe to ambulate with walker and is WBAT. Return to ED if any problems at home. HPI General Mode of arrival: EMS . Date/Time Provider Initiated Documentation: 09/10/18 22:06 . Limitations to Documentation: other (dementia) . Information obtained by: patient, EMS and old records reviewed . HPI Narrative: Patient brought in by ambulance after trip and fall at home. Patient was walking to her bedroom when her foot got caught on a carpet runner. She fell. She thinks she had her head but she did not have loss of consciousness. She was able to get up and walk to the bed. She complained of some hip pain and family called EMS. Patient arrives in no distress. She states she has no pain currently. She denies passing out. She denies any chest pain, rib pain, back pain, neck pain. She does have a history of dementia but seems fairly cognizant. Related Data Home Medications Medication Instructions Recorded Confirmed diphenhydramine HCl [Shikha-[place] 25 mg PO PRN 03/30/17 09/10/18 Plus Allergy] levothyroxine 112 mcg PO DAILY 05/18/18 09/10/18 Allergies Allergy/AdvReac Type Severity Reaction Status Date / Time No Known Allergies Allergy Unverified 09/10/18 22:09 Review of Systems Review of Systems As documented in HPI otherwise negative as below. Const: no fever, chills, weakness Resp: no cough, SOB, pleuritic pain CV: no CP, diaphoresis, edema, syncope GI: no abdominal pain, nausea, vomiting, diarrhea Neuro: no headache, numbness, focal weakness, confusion [facility] Medical History Epiretinal membrane (ERM) of left eye (Chronic) Epiretinal membrane (ERM) of right eye (Chronic) Alzheimer's dementia (Chronic) Attention deficit disorder (ADD) (Chronic) H/O Randhawa's palsy (Chronic) History of tobacco use (Chronic) Hyperlipidemia (Chronic) Hypothyroidism (Chronic) Cortical cataract of left eye (Resolved) Cortical cataract of right eye (Resolved) Nuclear sclerotic cataract of left eye (Resolved) Nuclear sclerotic cataract of right eye (Resolved) Posterior subcapsular age-related cataract of left eye (Resolved) Posterior subcapsular age-related cataract, right eye (Resolved) Surgical History Status post cataract extraction and insertion of intraocular lens of left eye (Chronic 06/11/18) Status post cataract extraction and insertion of intraocular lens of right eye (Chronic 05/31/18) S/P hip replacement (Chronic) Social History Smoking/Tobacco Use Status: Former Tobacco Use Alcohol Intake: never Drug use: Never Do you feel safe at home: Yes Do you feel safe in your relationship?: Yes Exam Narrative Exam Narrative: 1. Const: WDWN female in NAD. 2. Eyes: No conjunctival injection or scleral icterus. 3. ENT: NC/AT. No facial swelling or tenderness. Mucous membranes moist. 4. Neck: Supple without adenopathy. Trachea midline. No c-spine tenderness. 5. CVS: +S1/S2, No murmurs or gallops. 6. RESP: Unlabored respiratory effort. Clear to auscultation bilaterally. No wheezes rales or rhonchi. No rib tenderness. No chest pain with compression. 7. GI: Soft, NT/ND, No guarding or rebound. 8. MSK: No C/C/E present. No deformity or tenderness noted. She has normal range of motion throughout her extremities including in her hips. She has no tenderness to the spine anywhere. No pain with compression of the pelvis. 9. Skin: Warm/dry, no lacs or abrasions 10. Neuro: A&O x3. 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 Sensation grossly intact, no focal neurologic deficits. 11. Psych: Appropriate mood and affect
[2018-09-10 22:12] VITALS: BP 125/65
--- NOTE | 2018-09-10 22:16 | DI.RAD_ITS ---
SYMPTOM/DIAGNOSIS: FELL, RT GROIN PAIN RIGHT HIP: Two views were obtained. There is a total left hip prosthesis in position. No evidence of acute right hip fracture. Please see CT report which showed minimally to nondisplaced fractures of superior and inferior pubic rami on the right.
--- NOTE | 2018-09-10 22:30 | NUR.NOTE ---
Nursing Note: attempted to ambulate patient, unable to bear weight on the right leg with increased pain in right groin, aware.
[2018-09-10] MEDS: Acetaminophen 500 MG TAB 1000 MG PO (22:54)
--- NOTE | 2018-09-10 23:23 | DI.VRAD_ITS ---
EXAM: XR Right Hip with Pelvis when Performed, 2 or 3 Views EXAM DATE/TIME: 09/10/2018 10:18 PM CLINICAL HISTORY: 82 years old, female; Injury or trauma; Fall; Initial encounter; Blunt trauma (contusions or hematomas); Right; Groin; Injury date: 09/10/2018; Injury details: Fell in house on the way into the bathroom; Prior surgery; Surgery type: Lt yennifer TECHNIQUE: Imaging protocol: XR Right hip with pelvis when performed, 2 or 3 views COMPARISON: CT ABDOMEN PELVIS WO/W 04/27/2018 9:53 AM FINDINGS: Bones/joints: Bones are osteopenic. No displaced fractures are seen. Postoperative changes from left total hip arthroplasty noted, without evidence of complication. There is mild right hip arthrosis. Degenerative changes are present in the lower lumbosacral spine and bilateral SI joints. There is apparent enthesopathy/heterotopic ossification about the bilateral ischial tuberosities. Soft tissues: Unremarkable as seen. Gastrointestinal tract: Large amount of retained colonic stool slightly limits the examination. IMPRESSION: No evident acute osseous abnormality. Dictated and Authenticated by: Phillip Jimenez MD. Ordering:TAMI Scruggs MD
--- NOTE | 2018-09-10 23:58 | DI.CT_ITS ---
SYMPTOM/DIAGNOSIS: FELL, RT GROIN PAIN, NEG XR PELVIC CT: CT examination of the pelvis and hips was performed. Left hip arthroplasty noted in position. There is a nondisplaced fracture of the superior pubic ramus and a minimally displaced fracture of the inferior right pubic ramus. No fracture seen involving the femur or acetabulum. No pelvic hematoma or adenopathy is seen. CONCLUSION: Nondisplaced/minimally displaced inferior and superior right pubic rami fracture. No hip fracture per se.
--- NOTE | 2018-09-11 00:19 | DI.VRAD_ITS ---
EXAM: CT Pelvis Without Contrast, Skeletal EXAM DATE/TIME: 09/10/2018 11:37 PM CLINICAL HISTORY: 82 years old, female; Injury or trauma; Fall; Initial encounter; Blunt trauma (contusions or hematomas); Right; Pelvic region; Injury date: 09/10/2018; Injury details: Tripped on a rug and fell at home; Prior surgery; Surgery type: Left yennifer TECHNIQUE: Imaging protocol: Axial computed tomography images of the pelvis without intravenous contrast. Exam focused on the skeletal structures. Radiation optimization: All CT scans at this facility use at least one of these dose optimization techniques: automated exposure control; mA and/or kV adjustment per patient size (includes targeted exams where dose is matched to clinical indication); or iterative reconstruction. COMPARISON: CT ABDOMEN PELVIS WO/W 04/27/2018 9:53 AM FINDINGS: Stomach and bowel: There is a large amount of retained colonic stool and small bowel feces sign, consistent with delayed transit. Visualized portions of the gastrointestinal tract demonstrate no no evidence of obstruction or focal inflammation. Vasculature: Moderate vascular calcifications are present. Bones/joints: Bones are osteopenic. There are minimally displaced fractures of the right superior and inferior pubic rami. No other fractures are seen. Postoperative changes from left total hip arthroplasty are noted. No evidence of complication. Mild right hip arthrosis is again noted. There is enthesopathy/heterotopic ossification involving the bilateral ischial tuberosities and proximal hamstrings tendons. Moderate degenerative changes are present in the lower lumbosacral spine, with likely moderate to severe stenosis at L4-5. Soft tissues: Unremarkable as seen. IMPRESSION: 1. Minimally displaced fractures of the right superior and inferior pubic rami. 2. Other chronic findings as above. Dictated and Authenticated by: Phillip Jimenez MD. Ordering:TAMI Scruggs MD
[2018-09-11] MEDS: Ibuprofen 400 MG TAB PO (00:39)
--- NOTE | 2018-09-11 01:28 | NUR.NOTE ---
Nursing Note: patient oob using a walker, pivoted to the cammode without difficulty then walked in the room and tolerated well. MD notified.
--- NOTE | 2018-09-13 08:31 | CMPROGNOTE_ITS ---
Care Management Progress Note 09/13-Dr. Walker requested assistance with a PCP (Jude) f/u for hip fracture. Referral faxed to [facility] this am.
== END 2018-09-11 01:55 | disposition home or self-care (01) ==
PROVIDERS: Emergency Provider Emergency Medicine; PCP Nurse Practitioner Family
DX: S32.511A Fracture of superior rim of right pubis, initial encounter for closed fracture (principal); S32.591A Other specified fracture of right pubis, initial encounter for closed fracture; W01.0XXA Fall on same level from slipping, tripping and stumbling without subsequent striking against object, initial encounter
CPT/HCPCS: 99284; 72192; 73502

== ENCOUNTER 2018-10-15 09:29 | Outpatient (REF) | payer MEDICARE, OTHER, SELFPAY ==
[2018-10-15 13:10] LABS: ALT 17 U/L (12-78); AST 20 U/L (15-37); Albumin 3.2 g/dL (3.4-5.0); Alkaline Phosphatase 230 U/L (46-116); Anion Gap 9.7 mmol/L (3-11); BUN 19 mg/dL (7-18); Bilirubin, Total 0.5 mg/dL (0.2-1.0); CO2 28.3 mmol/L (21.0-32.0); CREATININE 0.76 mg/dL (0.55-1.02); Calcium 9.7 mg/dL (8.5-10.1); Chloride 103 mmol/L (98-107); Glucose 106 mg/dL (70-100); Potassium 3.6 mmol/L (3.5-5.1); Sodium 141 mmol/L (136-145); Total Protein 7.2 g/dL (6.4-8.2)
== END 2018-10-15 09:49 ==
LOC: NCHCN 09:29
PROVIDERS: PCP Nurse Practitioner; Visit Provider Nurse Practitioner
DX: E03.9 Hypothyroidism, unspecified (principal); G30.9 Alzheimer's disease, unspecified; R31.9 Hematuria, unspecified
CPT/HCPCS: 80053; 84443

== ENCOUNTER → 2018-10-20 10:44 | Outpatient (BNVA) | payer MEDICARE, SELFPAY | PROVIDERS: PCP Nurse Practitioner; Referring Provider Nurse Practitioner Family; Visit Provider Student in an Organized Health Care Education/Training Program | DX: R69 Illness, unspecified (principal) ==

== ENCOUNTER 2018-10-20 10:47 | Outpatient (CLI) | payer MEDICARE, OTHER, SELFPAY | END 2018-10-20 11:07 | PROVIDERS: PCP Nurse Practitioner; Visit Provider Student in an Organized Health Care Education/Training Program | DX: I47.1 Supraventricular tachycardia (principal); F17.211 Nicotine dependence, cigarettes, in remission | CPT/HCPCS: 99203; 99214; 93005; 93010 ==

== ENCOUNTER 2019-04-21 03:09 | Outpatient (CLI) | payer MEDICARE, OTHER, SELFPAY ==
--- NOTE | 2019-04-21 13:41 | DI.CT_ITS ---
EXAM: CT CHEST WO CLINICAL HISTORY: CIGARETTE SMOKER F17.210, MILD COPD J44.9 TECHNIQUE: Noncontrast CT examination of chest was performed utilizing low-dose lung cancer screenin g protocol. COMPARISON: CHEST WITHOUT CONTRAST from 11/24/2017 CHEST WITHOUT CONTRAST from 11/24/2017 FINDINGS: Images obtained through upper abdomen show probable bilateral renal cysts. Ultrasound confirmation s uggested to exclude solid renal lesion. Visualized portions of liver, spleen and pancreas unremarkab le by noncontrast criteria. No mediastinal or hilar adenopathy. No pleural-based mass or pleural ef fusion. There is bilateral apical, pleural and pulmonary scarring with some calcified plaque, unchan ged from prior CT of November 2017. A 5 millimeter left apical intrapulmonary nodule is noted, unchanged from the prior study. Tracheobronchial tree appears intact. Diffuse central lobular emphysema note d. IMPRESSION: Benign appearance. Category 2S, continue annual screening with LDCT in 12 months. Incidental renal masses noted, probably cysts; ultrasound confirmation recommended to exclude solid l esion. Lung RADS Cat 2 - Benign Appearance / Behavior: Nodules with a very low likelihood of becoming a clin ically active cancer due to size or lack of growth Lung RADS Cat S - Other: Clinically Significant or Potentially Clinically Significant Findings (non l judy cancer)
== END 2019-04-21 03:29 ==
PROVIDERS: PCP Nurse Practitioner; Visit Provider Nurse Practitioner
DX: J44.9 Chronic obstructive pulmonary disease, unspecified (principal); F17.210 Nicotine dependence, cigarettes, uncomplicated; J98.4 Other disorders of lung; R91.1 Solitary pulmonary nodule; N28.1 Cyst of kidney, acquired
CPT/HCPCS: 71250

== ENCOUNTER 2019-05-04 00:39 | Outpatient (CLI) | payer MEDICARE, OTHER, SELFPAY ==
--- NOTE | 2019-05-04 10:45 | DI.US_ITS ---
EXAM: US RENAL CLINICAL HISTORY: RENAL CYSTS N28.1, CT INCIDENTAL FINDINGS TECHNIQUE: Ultrasound performed using standard protocol. COMPARISON: CT ABDOMEN PELVIS WO/W from 04/27/2018 CT CHEST WO from 04/21/2019 FINDINGS: The right kidney measures 10 cm in length. The parenchymal thickness and echogenicity appear normal . Four cysts are identified. No solid masses are seen. The findings appear unchanged when compare d with the previous CT urogram. The left kidney measures 10 cm in length. A 3.8 cm maximal dimension cyst is seen in the mid to lower pole. The findings appear unchanged when compared the previous CT. No stones or hydronephrosis are seen. The prevoid bladder volume measured 81 cc. There is postvoi d residual of 35 cc. The both ureteral jets were visualized. IMPRESSION: Bilateral renal cysts. No suspicious features or change when compared with 2018.
== END 2019-05-04 00:59 ==
PROVIDERS: PCP Nurse Practitioner; Visit Provider Nurse Practitioner
DX: N28.1 Cyst of kidney, acquired (principal)
CPT/HCPCS: 76770

== ENCOUNTER → 2019-11-08 09:12 | Outpatient (BNVA) | payer MEDICARE, OTHER, SELFPAY | PROVIDERS: PCP Nurse Practitioner; Visit Provider Nurse Practitioner Adult Health | DX: G30.1 Alzheimer's disease with late onset (principal); F02.80 Dementia in other diseases classified elsewhere, unspecified severity, without behavioral disturbance, psychotic disturbance, mood disturbance, and anxiety | CPT/HCPCS: 99213 ==

== ENCOUNTER 2019-11-08 11:44 | Outpatient (REF) | payer MEDICARE, SELFPAY ==
[2019-11-08 15:09] LABS: HCT 39.2 % (36.0-46.0); HGB 12.8 g/dL (12.0-15.5); Mean Corp. HGB Concentration 32.7 g/dL (32.0-36.0); Mean Corpuscular Hemoglobin 31.1 pg (27.0-33.0); Mean Corpuscular Volume 95.1 fL (80-95); Mean Platelet Volume 10.5 fL (8.0-11.0); Platelet Count 245 x1000/uL (130-400); RBC 4.12 m/cumm (4.00-5.20); RBC Distribution Width 12.5 % (11.7-14.6); White Blood Cell Count 6.02 k/cumm (4.4-10.8)
[2019-11-08 15:47] LABS: ALT 20 U/L (14-59); AST 21 U/L (15-37); Albumin 3.5 g/dL (3.4-5.0); Alkaline Phosphatase 101 U/L (46-116); Anion Gap 8.6 mmol/L (3-11); BUN 28 mg/dL (7-18); Bilirubin, Total 0.5 mg/dL (0.2-1.0); CO2 26.4 mmol/L (21.0-32.0); CREATININE 0.83 mg/dL (0.55-1.02); Calcium 8.9 mg/dL (8.5-10.1); Chloride 106 mmol/L (98-107); Cholesterol 236 mg/dL (<200); Glucose 91 mg/dL (74-106); Potassium 3.9 mmol/L (3.5-5.1); Sodium 141 mmol/L (136-145); TSH (W/Ref FT4) 0.82 uIU/mL (0.36-3.74); Total Protein 6.8 g/dL (6.4-8.2); Triglyceride 58 mg/dL (<150)
[2019-11-08 17:23] LABS: Calculated LDL 168 mg/dL (<100); HDL Cholesterol 57 mg/dL (40-60)
== END 2019-11-08 12:04 ==
LOC: NCHCN 11:44
PROVIDERS: PCP Nurse Practitioner; Visit Provider Nurse Practitioner
DX: E03.9 Hypothyroidism, unspecified (principal); E78.5 Hyperlipidemia, unspecified; R06.02 Shortness of breath
CPT/HCPCS: 80053; 80061; 85027; 84443

== ENCOUNTER 2020-05-18 03:35 | Outpatient (CLI) | payer MEDICARE, OTHER, SELFPAY ==
--- NOTE | 2020-05-18 | DI.CT_ITS ---
EXAM: CT CHEST WO CLINICAL HISTORY: F/U PULMONARY NODULE, R91.1 TECHNIQUE: Imaging Protocol: Axial computed tomography images with coronal and sagittal reformatted images were created and reviewed. Low-dose screening protocol. COMPARISON: CT CT CHEST WO from 04/21/2019 FINDINGS: Tracheobronchial tree: Patent where visualized. Mediastinum and Connie: No dominant adenopathy or fluid collection. Pulmonary parenchyma: No consolidation or dominant measurable mass. Mild biapical scarring.. Moderate centrilobular emphysema greater in the upper lobes. Lung Nodules: Stable 5 millimeter left upper lobe nodule. No new lung nodules Pleura: No effusion or pneumothorax. Heart: The heart is not dilated. coronary artery calcifications are seen. Aorta: Thoracic aorta non-dilated. Upper abdomen: Hiatal hernia. Bilateral renal cysts. Bones: Stable moderate compression fracture of T5. Degenerative disc changes. No lytic or blastic l esions. Soft Tissues: Unremarkable. IMPRESSION: Stable 5 millimeter left upper lobe nodule. Centrilobular emphysema. Category Lung RADS Cat 2 - Benign Appearance / Behavior: Nodules with a very low likelihood of becomi ng a clinically active cancer due to size or lack of growth Lung-RADS 1.0 CATEGORIES: Category 0 - Prior chest CT exam(s) being located for comparison. Category 1 - Annual screening in 12 months. No nodules or definitely benign nodules. Category 2 - Annual screening in 12 months. Benign appearance. Nodules with low likelihood of becomin g active cancer. Category 3 - 6-month follow-up. Probably benign. Short-term follow-up suggested. Nodules with low lik elihood of becoming active cancer. Category 4A - 3-month follow-up and CT/PET if >8 mm in size. Suspicious finding. Findings which requi re additional testing. Category 4B - Findings which require additional testing and tissue sampling. Suspicious finding. C Added to Any of the Above - History of prior lung cancer screening. S Added to Any of the Above - Significant unexpected other finding. RADIATION DOSE DELIVERED: 76.62mGy.cm Total DLP 76.62mGy.cm Total DLP DATA REPOSITORY: All CT scans at this facility are submitted to the National Radiology Data Registry (NRDR) Dose Index Registry (DIR) with the [employer] (ACR). RADIATION OPTIMIZATION: All CT scans at this facility use at least one of these dose optimization te chniques: automated exposure control; mA and/or kV adjustment per patient size (includes targeted exa ms where dose is matched to clinical indication); or iterative reconstruction.
== END 2020-05-18 03:55 ==
PROVIDERS: PCP Nurse Practitioner; Visit Provider Nurse Practitioner
DX: R91.1 Solitary pulmonary nodule (principal); J43.2 Centrilobular emphysema
CPT/HCPCS: 71250

== ENCOUNTER → 2020-11-06 09:02 | Outpatient (BNVA) | payer MEDICARE, OTHER, SELFPAY | PROVIDERS: PCP Nurse Practitioner; Referring Provider Nurse Practitioner; Visit Provider Nurse Practitioner Adult Health | DX: G30.9 Alzheimer's disease, unspecified (principal); F02.80 Dementia in other diseases classified elsewhere, unspecified severity, without behavioral disturbance, psychotic disturbance, mood disturbance, and anxiety | CPT/HCPCS: 99213; 99215 ==

== ENCOUNTER 2020-11-16 10:03 | Outpatient (REF) | payer MEDICARE, OTHER, SELFPAY | END 2020-11-16 10:04 | disposition home or self-care (01) | LOC: NCHCN 10:03 | PROVIDERS: PCP Nurse Practitioner; Visit Provider Nurse Practitioner | DX: E03.9 Hypothyroidism, unspecified (principal) | CPT/HCPCS: 84443 ==

== ENCOUNTER 2020-12-22 22:54 | Emergency (ER) | payer MEDICARE, OTHER, SELFPAY ==
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
[2020-12-22 22:57] VITALS: BP 134/69; PULSE 79; RESP 18; TEMP 36.8; O2SAT 98
== END 2020-12-23 02:10 | disposition home or self-care (01) ==
LOC: ER 23:34
PROVIDERS: Emergency Provider Emergency Medicine; PCP Nurse Practitioner
DX: Z04.1 Encounter for examination and observation following transport accident (principal); Z71.1 Person with feared health complaint in whom no diagnosis is made
CPT/HCPCS: 99283

== ENCOUNTER 2021-03-31 18:09 | Emergency (ER) | payer MEDICARE, OTHER, SELFPAY ==
[2021-03-31 18:15] VITALS: BP 155/65; PULSE 89; RESP 18; TEMP 36.4; O2SAT 98
[2021-03-31 18:23] VITALS: BP 134/69
--- NOTE | 2021-03-31 18:30 | DI.RAD_ITS ---
Exam(s) XR HAND LT COMPLETE EXAM: XR HAND LT COMPLETE CLINICAL HISTORY: Fall, 4th finger pain, R/O Fracture. TECHNIQUE: 2D digital imaging was performed. COMPARISON: No exams were available for comparison FINDINGS: Four views of the left hand reveal age-related osteopenia. There is a fracture are on the base of the distal phalanx of the 4th-ring finger, best seen on the la teral view. This joint is also involved with degenerative change. Calcification in the triangular fibrocartilage of the wrist is noted. Chronic degenerative changes a t the 1st carpometacarpal joint are noted. Also degenerative changes at the interphalangeal joints, most prominent at the 4th finger. IMPRESSION: There is a mildly displaced fracture at the level of the base of the distal phalanx of the 4th-ring f tahir. This is best seen on the lateral view. DATA REPOSITORY: RADIATION DOSE DELIVERED:
--- NOTE | 2021-03-31 18:30 | DI.RAD_ITS ---
Exam(s) XR HUMERUS LT EXAM: XR HUMERUS LT CLINICAL HISTORY: Fall. TECHNIQUE: 2D digital imaging was performed. COMPARISON: No exams were available for comparison FINDINGS: There is a 3 x 3 millimeter calcific density adjacent to the greater tuberosity consistent with calci fic tendinitis-bursitis. There is a possible subtle fracture here. Recommend dedicated shoulder vicente ms. No fractures lower down in the humerus. IMPRESSION: As above. Recommend dedicated views of the left shoulder. DATA REPOSITORY: RADIATION DOSE DELIVERED:
--- NOTE | 2021-03-31 18:35 | ED.GENADUL_ITS ---
Discharge Plan Disposition Patient Disposition: HOME Condition: Stable Discharge Details Clinical Impression: Closed fracture of head of left humerus, Finger fracture, left Primary Care Provider: Susana Saunders ED Provider: Pascale Headley Home Meds and New Rx's Prescriptions: Continued Spiriva Respimat 1.25 mcg/actuation mist 2 puff inhalation DAILY RF: 0 albuterol 90 mcg/actuation aerosol 90 mcg IH PRN PRNRF: 0 diphenhydramine HCl [Shikha-Newton Plus Allergy] 25 MG tablet 25 mg PO PRN RF: 0 levothyroxine 112 mcg Capsule 112 mcg PO DAILY RF: 0 Discharge Instructions Instructions: Finger Fracture (ED), Proximal Humerus Fracture (ED) Additional Instructions: Keep left arm in sling when up and about. X-rays show an impacted humeral head fracture. May take splint off at home if it is uncomfortable. We will splint the finger so that the joint is straight. Keep the splint on the finger until follow-up with orthopedic doctor. Please follow-up with orthopedics in 1 week. Please take Tylenol or Ibuprofen with food every 4-6 hours as needed for pain and swelling. Return to the ER for any shortness of breath, chest pain, increased confusion or any concerns. Rest ice compression elevation. Referrals: Reagan Bernal MD [ [facility] STAFF PHYSICIAN] - 1 week Medical Decision Making 85-year-old female presents to the ER with her daughter with chief complaint of witnessed mechanical fall with FOOSH type injury. Patient was walking in the with a cane near a shed when she fell landing on her left arm. She is complaining of left upper arm pain. She does have a past medical history of Alzheimer's dementia, ADD, Randhawa's palsy, cataracts. She does not remember falling. She denies any neck pain, pelvic pain, chest pain or any other complaints. She denies hitting her head or loss of consciousness. On initial exam no obvious deformity distal CMS intact pulses equal. Cap refill less than 2 seconds. XR left humerus and left hand ordered Discussed x-ray of hand and initial humerus results with patient and family. Shoulder x-rays ordered. Will place a finger splint on patient. Imaging protocol: XR Left shoulder. Views: 2 or more views. COMPARISON: CR XR HUMERUS LT 03/31/2021 6:50 PM FINDINGS: Bones/joints: There is a fracture of the humeral head with vertical component and involvement at the junction of the neck. Mild comminution. Soft tissues: Normal. IMPRESSION: Slightly comminuted humeral head/neck fracture. Thank you for allowing us to participate in the care of your patient. Dictated and Authenticated by: Shazia Albarran MD Imaging protocol: XR Left hand. Views: 3 or more views. COMPARISON: No relevant prior studies available. FINDINGS: Bones/joints: There is an avulsion fracture at the base of the volar aspect of the proximal portion of the distal phalanx 4th digit. There is mild distraction. There is diffuse arthritis with mild subluxation at the MCP joints. There is chondrocalcinosis at the 1st MCP articulation as well as in the carpus. Soft tissues: Normal. IMPRESSION: Avulsion fracture proximal aspect distal phalanx 4th digit. Thank you for allowing us to participate in the care of your patient. Dictated and Authenticated by: Shazia Albarran MD Spoke with Dr. Bernal who is orthopedic surgeon on-call he was able to personally view the x-rays. He recommends sling, splinting the finger in extension for 6 weeks and follow-up with orthopedics in 1 week. Discussed home care and follow-up with patient and family who verbalized understanding. Discussed strict return instructions. Patient made hemodynamically stable and at baseline. This text was generated using [employer] system, please disregard any oddities of phrase or misspellings. HPI General Mode of arrival: ambulatory . Date/Time Provider Initiated Documentation: 03/31/21 18:21 . Limitations to Documentation: physical limitation . Information obtained by: patient, family, RN notes reviewed and old records reviewed . HPI Narrative: 85-year-old female presents to the ER with her daughter with chief complaint of witnessed mechanical fall with FOOSH type injury. Patient was walking in the with a cane near a shed when she fell landing on her left arm. She is complaining of left upper arm pain. She does have a past medical history of Alzheimer's dementia, ADD, Randhawa's palsy, cataracts. She does not remember falling. She denies any neck pain, pelvic pain, chest pain or any other complaints. She denies hitting her head or loss of consciousness. On initial exam no obvious deformity distal CMS intact pulses equal. Cap refill less than 2 seconds. Related Data Home Medications Medication Instructions Recorded Confirmed diphenhydramine HCl [Shikha-Newton 25 mg PO PRN 03/30/17 03/31/21 Plus Allergy] levothyroxine 112 mcg PO DAILY 05/18/18 03/31/21 albuterol 90 mcg/actuation aerosol 90 mcg IH PRN PRN 10/20/18 03/31/21 inhaler tiotropium bromide 1.25 2 puff INHALATION DAILY 11/06/20 03/31/21 mcg/actuation mist for inhalation Allergies Allergy/AdvReac Type Severity Reaction Status Date / Time No Known Allergies Allergy Unverified 03/31/21 18:18 General Stated Complaint: Orthopedic PEDRO: 4 Review of Systems All systems reviewed & are unremarkable except as noted in HPI and below ENT Ears, Nose, Mouth, and Throat: Denies neck pain Musculoskeletal Musculoskeletal: Reports as per HPI, Denies back pain, Denies deformity, Denies neck pain and Reports other (Left arm pain, S/P fall ) [facility] Medical History (Updated 03/31/21 @ 20:59 by Pascale Headley) Alzheimer's dementia Attention deficit disorder (ADD) Cortical cataract of left eye Cortical cataract of right eye Epiretinal membrane (ERM) of left eye Epiretinal membrane (ERM) of right eye H/O Randhawa's palsy History of tobacco use Hyperlipidemia Hypothyroidism Nuclear sclerotic cataract of left eye Nuclear sclerotic cataract of right eye Posterior subcapsular age-related cataract of left eye Posterior subcapsular age-related cataract, right eye Surgical History S/P hip replacement Status post cataract extraction and insertion of intraocular lens of left eye (06/11/18) Status post cataract extraction and insertion of intraocular lens of right eye (05/31/18) Social History Smoking/Tobacco Use Status: Former Tobacco Use Smoking risk assessment performed?: Yes Alcohol Intake: never Drug use: Never Do you feel safe at home: Yes Do you feel safe in your relationship?: Yes Exam Narrative Exam Narrative: General: Well Developed, Awake and at baseline, slightly confused history of Alzheimer's dementia, conversant. Skin: Warm and Dry HEENT: Head: No palpable deformities, Normocephalic Eyes: Pupils PERRLA, EOM's intact. No periorbital eccymosis or step off Ears: Canal patent. Tympanic membranes are clear . No crews's sign, no hemptympanum. Nose/Face: Atraumatic. Facial bones nontender to palpation and stable with manipulation. Mouth/Throat: No intraoral trauma. Teeth and mandible are intact. Neck: No midline tenderness, no step off, no deformity to palpation of C-spine. Trachea midline. Chest: No surface trauma. Nontender without crepitus or deformity. Lungs clear to ausculatation bilaterally. Heart: RRR, no rubs, murmurs or gallop. Abdomen: No abrasions, ecchymosis, or surface trauma. Nondistended. Nontender to palpation no guarding, rebound, or rigidity. Pelvis: Nontender to palpation and stable to compression. Femoral pulses strong and equal Extremities: Mild contusion noted to the distal end of her left fourth finger. Full flexion extension of wrist on the left, able to flex and extend elbow. Rep orts proximal humerus tenderness with flexion extension of elbow. No obvious deformity. Sensation intact. Peripheral pulses intact and equal. Neuro: ANO x2, GCS 15, cranial nerves II through XII intact. Motor and sensory exam nonfocal. Reflexes are symmetric. Course Vital Signs Vital signs: Vital Signs Temperature 36.4 C L 03/31/21 18:15 Pulse 89 03/31/21 18:15 Respiratory Rate 18 03/31/21 18:15 Blood Pressure 155/65 H 03/31/21 18:15 Pulse Oximetry 98 03/31/21 18:15 Temperature 36.4 C L 03/31/21 18:15 Temperature Source Skin 03/31/21 18:15 Pulse 89 03/31/21 18:15 Respiratory Rate 18 03/31/21 18:15 Respiratory Effort Non-Labored 03/31/21 18:18 Blood Pressure 134/69 03/31/21 18:23 Pulse Oximetry 98 03/31/21 18:15 Pain Level 8 03/31/21 18:15
--- NOTE | 2021-03-31 19:30 | DI.RAD_ITS ---
Exam(s) XR SHOULDER LT COMPLETE 2+V EXAM: XR SHOULDER LT COMPLETE 2+V CLINICAL HISTORY: R/O Fracture. TECHNIQUE: 2D digital imaging was performed. COMPARISON: CR RIGHT SHOULDER COMPLETE from 01/26/2014 FINDINGS: There is a mildly comminuted fracture of the left humeral head-neck. Fracture line extends into the greater tuberosity (which is not displaced). There is no dislocation of glenohumeral joint. Degener ative changes in the AC joint are noted. IMPRESSION: Mildly comminuted humeral head-neck fracture. DATA REPOSITORY: RADIATION DOSE DELIVERED:
--- NOTE | 2021-03-31 20:35 | DI.VRAD_ITS ---
PROCEDURE INFORMATION: Exam: XR Left Hand Exam date and time: 03/31/2021 6:36 PM Age: 85 years old Clinical indication: Other: Fall. 4th finger pain. R/O fracture TECHNIQUE: Imaging protocol: XR Left hand. Views: 3 or more views. COMPARISON: No relevant prior studies available. FINDINGS: Bones/joints: There is an avulsion fracture at the base of the volar aspect of the proximal portion of the distal phalanx 4th digit. There is mild distraction. There is diffuse arthritis with mild subluxation at the MCP joints. There is chondrocalcinosis at the 1st MCP articulation as well as in the carpus. Soft tissues: Normal. IMPRESSION: Avulsion fracture proximal aspect distal phalanx 4th digit. Dictated and Authenticated by: Shazia Albarran MD. Ordering:JOHNNY Ashraf MD
--- NOTE | 2021-03-31 20:40 | DI.VRAD_ITS ---
PROCEDURE INFORMATION: Exam: XR Left Humerus Exam date and time: 03/31/2021 6:36 PM Age: 85 years old Clinical indication: Other: Fall TECHNIQUE: Imaging protocol: XR Left humerus. Views: 2 or more views. COMPARISON: CT CHEST WO 05/18/2020 2:55 PM FINDINGS: Bones/joints: There is a slightly impacted fracture of the humeral head and neck junction. There appears to be a vertical component. Soft tissues: Normal. IMPRESSION: Humeral head/neck junction fracture. Minimal impaction and comminution. Dictated and Authenticated by: Shazia Albarran MD. Ordering:JOHNNY Ashraf MD
--- NOTE | 2021-03-31 20:48 | DI.VRAD_ITS ---
PROCEDURE INFORMATION: Exam: XR Left Shoulder Exam date and time: 03/31/2021 7:31 PM Age: 85 years old Clinical indication: Other: R/O fracture TECHNIQUE: Imaging protocol: XR Left shoulder. Views: 2 or more views. COMPARISON: CR XR HUMERUS LT 03/31/2021 6:50 PM FINDINGS: Bones/joints: There is a fracture of the humeral head with vertical component and involvement at the junction of the neck. Mild comminution. Soft tissues: Normal. IMPRESSION: Slightly comminuted humeral head/neck fracture. Dictated and Authenticated by: Shazia Albarran MD. Ordering:JOHNNY Ashraf MD
== END 2021-03-31 21:11 | disposition home or self-care (01) ==
LOC: ER 21:12
PROVIDERS: Emergency Provider Registered Nurse Emergency; PCP Nurse Practitioner
DX: S42.392A Other fracture of shaft of left humerus, initial encounter for closed fracture (principal); S62.615A Displaced fracture of proximal phalanx of left ring finger, initial encounter for closed fracture; W18.39XA Other fall on same level, initial encounter
CPT/HCPCS: 29130; 99284; 73030; 73060; 73130; 99283

== ENCOUNTER 2021-04-09 11:54 | Outpatient (CLI) | payer MEDICARE, OTHER, SELFPAY ==
--- NOTE | 2021-04-09 11:00 | DI.RAD_ITS ---
Exam(s) XR SHOULDER LT COMPLETE 2+V EXAM: XR SHOULDER LT COMPLETE 2+V INDICATION: follow up. COMPARISON: CR,XR XR SHOULDER LT COMPLETE 2+V from 03/31/2021 TECHNIQUE: 2D digital imaging was performed. FINDINGS: There has been no change in fracture alignment. Increased callus formation around the fracture site. Is seen since the previous exam. No new abnormalities. AC joint degenerative changes. DATA REPOSITORY: RADIATION DOSE DELIVERED:
== END 2021-04-09 11:55 | disposition home or self-care (01) ==
LOC: DIORS 11:55
PROVIDERS: PCP Nurse Practitioner; Referring Provider Student in an Organized Health Care Education/Training Program; Visit Provider Student in an Organized Health Care Education/Training Program
DX: S42.292A Other displaced fracture of upper end of left humerus, initial encounter for closed fracture; S62.615A Displaced fracture of proximal phalanx of left ring finger, initial encounter for closed fracture; W18.39XA Other fall on same level, initial encounter
CPT/HCPCS: 99204; 99214; 73030

== ENCOUNTER 2021-05-01 13:31 | Outpatient (REF) | payer MEDICARE, OTHER, SELFPAY ==
[2021-05-01 14:33] LABS: HCT 38.3 % (36.0-46.0); HGB 11.9 g/dL (11.2-15.7); MCH 29.9 pg (27.0-33.0); MCHC 31.1 % (32.0-36.0); MCV 96.2 fL (80-95); MPV 9.8 fL (8.0-11.0); Platelet Count 262 10^3/uL (130-400); RBC 3.98 10^6/uL (3.93-5.22); RDW 12.4 % (11.7-14.6); RDW-SD 43.9 fL; WBC 6.78 10^3/uL (4.4-10.8)
[2021-05-01 14:58] LABS: ALT 14 U/L (14-59); AST 18 U/L (15-37); Albumin 3.2 g/dL (3.4-5.0); Alkaline Phosphatase 128 U/L (46-116); Anion Gap 10.5 mmol/L (3-11); BUN 23 mg/dL (7-18); Bilirubin, Total 0.5 mg/dL (0.2-1.0); CO2 26.5 mmol/L (21.0-32.0); CREATININE 0.8 mg/dL (0.55-1.02); Calcium 9.1 mg/dL (8.5-10.1); Chloride 104 mmol/L (98-107); Glucose 104 mg/dL (74-106); Sodium 141 mmol/L (136-145); TSH (W/Ref FT4) 0.31 uIU/mL (0.36-3.74)
[2021-05-01 15:17] LABS: FREE T4 1.96 ng/dL (0.76-1.46)
== END 2021-05-01 13:32 | disposition home or self-care (01) ==
LOC: NCHCN 13:31
PROVIDERS: PCP Nurse Practitioner; Visit Provider Nurse Practitioner
DX: E03.9 Hypothyroidism, unspecified (principal); R19.7 Diarrhea, unspecified; G30.9 Alzheimer's disease, unspecified
CPT/HCPCS: 80053; 85027; 84439; 84443

== ENCOUNTER 2021-05-21 10:33 | Outpatient (CLI) | payer MEDICARE, OTHER, SELFPAY ==
--- NOTE | 2021-05-21 10:00 | DI.RAD_ITS ---
Exam(s) XR SHOULDER LT COMPLETE 2+V EXAM: XR SHOULDER LT COMPLETE 2+V CLINICAL HISTORY: left humerus fx f/u. TECHNIQUE: 2D digital imaging was performed of the left shoulder. Three images were obtained. AP a nd Y-view views were obtained. COMPARISON: CR XR SHOULDER LT COMPLETE 2+V from 04/09/2021 FINDINGS: BONES: There has been no change in alignment of the proximal left humeral fracture. There has been c ontinued interval healing. No bony destructive lesion is seen. The bones are osteopenic. JOINTS: No dislocation present. Degenerative changes are seen at the acromioclavicular joint. SOFT TISSUE: Normal. IMPRESSION: Continued interval healing of the proximal left humeral fracture. DATA REPOSITORY: RADIATION DOSE DELIVERED:
--- NOTE | 2021-05-21 10:15 | DI.RAD_ITS ---
Exam(s) XR FINGER LT RING EXAM: XR FINGER LT RING EXAM DATE/TIME: CLINICAL HISTORY: f/u of left finger fracture. TECHNIQUE: 2D digital imaging was performed of the left finger. Two views were obtained. PA/AP and lateral views were obtained. COMPARISON: None. FINDINGS: BONES: There has been no change in alignment of the fracture involving the base of the distal phalanx of the 4th finger. Callus formation has developed about the fracture site. No bony destructive les ion is seen. The bones are osteopenic. JOINTS: No dislocation is present. SOFT TISSUE: Normal. IMPRESSION: Healing fracture of the distal phalanx of the left 4th finger. DATA REPOSITORY: RADIATION DOSE DELIVERED:
== END 2021-05-21 10:34 | disposition home or self-care (01) ==
LOC: DIORS 10:33
PROVIDERS: PCP Nurse Practitioner; Referring Provider Nurse Practitioner; Visit Provider Student in an Organized Health Care Education/Training Program
DX: M20.012 Mallet finger of left finger(s) (principal); S62.635D Displaced fracture of distal phalanx of left ring finger, subsequent encounter for fracture with routine healing; S42.292D Other displaced fracture of upper end of left humerus, subsequent encounter for fracture with routine healing; X58.XXXD Exposure to other specified factors, subsequent encounter
CPT/HCPCS: 99213; 73030; 73140

== ENCOUNTER 2021-05-28 01:20 | Outpatient (CLI) | payer MEDICARE, OTHER, SELFPAY ==
--- NOTE | 2021-05-28 | DI.CT_ITS ---
Exam(s) CT CHEST WO EXAM: CT CHEST WO CLINICAL HISTORY: PULMONARY NODULE, R91.1, ANNUAL CT FOR LUNG NODULE MONITORING TECHNIQUE: Imaging Protocol: Axial computed tomography images with coronal and sagittal reformatted images were created and reviewed COMPARISON: CT CT ABDOMEN PELVIS WO/W from 04/27/[address] CHEST WO from 05/18/[address] CHEST WO from 05/18/2020 FINDINGS: The examination is limited due to patient motion artifact. Tracheobronchial tree: Patent where visualized. Pulmonary parenchyma: No consolidation or dominant measurable mass. Emphysematous changes are present in the lungs. Biapical scarring. Lung Nodules: There is a stable 5 mm left upper lobe pulmonary nodule. No new pulmonary nodules are present. Mediastinum and Connie: No dominant adenopathy or fluid collection. There is a moderate size hiatal her reza. Thyroid gland: Unremarkable. Lymph nodes: Unremarkable. Pleura: No effusion or pneumothorax. Heart: Mild cardiomegaly. Coronary artery calcification is present. No pericardial effusion. Aorta: Persistent enlargement of the ascending thoracic aorta up to 4.2 cm.Atherosclerosis. Upper abdomen: There again seen bilateral renal cysts. Soft Tissues: Unremarkable. Bones: Within normal limits. There is an old right rib fracture. There is an old left humeral fractu re. There is an old upper thoracic compression fracture deformity. IMPRESSION: Stable left upper lobe pulmonary nodule. Lung RADS Cat 2 - Benign Appearance / Behavior: Nodules with a very low likelihood of becoming a clin ically active cancer due to size or lack of growth Lung-RADS 1.0 CATEGORIES: Category 0 - Prior chest CT exam(s) being located for comparison. Category 1 - Annual screening in 12 months. No nodules or definitely benign nodules. Category 2 - Annual screening in 12 months. Benign appearance. Nodules with low likelihood of becomin g active cancer. Category 3 - 6-month follow-up. Probably benign. Short-term follow-up suggested. Nodules with low lik elihood of becoming active cancer. Category 4A - 3-month follow-up and CT/PET if >8 mm in size. Suspicious finding. Findings which requi re additional testing. Category 4B - Findings which require additional testing and tissue sampling. Suspicious finding. Modifier S- Potentially clinically significant finding. (Non lung cancer) RADIATION DOSE DELIVERED: 387.88mGy.cm Total DLP 10.46mGy CTDIvol 387.88mGy.cm Total DLP 387.88mGy.cm Total DLP DATA REPOSITORY: All CT scans at this facility are submitted to the National Radiology Data Registry (NRDR) Dose Index Registry (DIR) with the [employer] (A[employer]). RADIATION OPTIMIZATION: All CT scans at this facility use at least one of these dose optimization te chniques: automated exposure control; mA and/or kV adjustment per patient size (includes targeted exa ms where dose is matched to clinical indication); or iterative reconstruction.
== END 2021-05-28 01:40 ==
LOC: DI 01:20
PROVIDERS: PCP Nurse Practitioner; Visit Provider Nurse Practitioner
DX: R91.1 Solitary pulmonary nodule (principal); J98.4 Other disorders of lung; J43.8 Other emphysema
CPT/HCPCS: 71250

== ENCOUNTER 2021-07-14 09:43 | Emergency (ER) | payer MEDICARE, OTHER, MEDICAID, SELFPAY ==
[2021-07-14 09:50] VITALS: BP 130/61; PULSE 81; RESP 12; TEMP 36.5; O2SAT 95
--- NOTE | 2021-07-14 10:00 | DI.RAD_ITS ---
Exam(s) XR LUMBAR SPINE AP, LAT EXAM: XR LUMBAR SPINE AP, LAT CLINICAL HISTORY: fall, back pain. TECHNIQUE: 2D digital imaging was performed. Upright AP and lateral views were performed. COMPARISON: No exams were available for comparison FINDINGS: BONES: No fracture or destructive lesion. Vertebral bodies are unremarkable. Severe facet hypertrophy L4-5 causing grade 1 L5-S1 spondylolisthesis. Left hip prosthesis. DISKS: Severe degenerative disc changes throughout. ALIGNMENT: Moderate levo rotoscoliosis. SOFT TISSUE: Aortic calcification. No visible aneurysm. Dilated loops of bowel upper abdomen. No g ross evidence of free air.. Visualized lung bases grossly clear. IMPRESSION: Severe degenerative changes. No acute bony abnormality. Nonspecific distention of loops of bowel in the upper abdomen. DATA REPOSITORY: RADIATION DOSE DELIVERED:
--- NOTE | 2021-07-14 10:00 | DI.RAD_ITS ---
Exam(s) XR THORACIC SPINE COMPLETE EXAM: XR THORACIC SPINE COMPLETE CLINICAL HISTORY: posterior pain after fall. TECHNIQUE: 2D digital imaging was performed. COMPARISON: CT CT CHEST WO from 05/28/2021 CR,XR XR CHEST 2V PA LATERAL from 07/14/2021 FINDINGS: BONES: There is a stable compression fracture of T6. There is a moderate compression fracture of T7 which was not seen on the previous CT... DISKS:Scoliosis. Mild degenerative disc changes. SOFT TISSUE: Visualized lungs are clear. IMPRESSION: Stable moderate to severe compression fracture of T6. moderate compression T7 new since prior CT. DATA REPOSITORY: RADIATION DOSE DELIVERED:
--- NOTE | 2021-07-14 10:00 | DI.RAD_ITS ---
Exam(s) XR PELVIS AP EXAM: XR PELVIS AP CLINICAL HISTORY: fall, back pain. TECHNIQUE: 2D digital imaging was performed. COMPARISON: CR XR hip RT complete AP pelvis from 09/10/[address] pelvic wo from 09/10/2018 FINDINGS: BONES: Old right inferior pubic ramus fracture. No acute fracture is present. No bony destructive le elsa is seen. Severe degenerative changes lower lumbar spine. JOINTS: No dislocation present. No joint space narrowing is present. Left total hip prosthesis. SOFT TISSUE: Soft tissue calcifications proximal hamstring tendons. Aortic calcification. IMPRESSION: Old right pubic ramus fracture. No acute abnormality. DATA REPOSITORY: RADIATION DOSE DELIVERED:
--- NOTE | 2021-07-14 10:00 | DI.RAD_ITS ---
Exam(s) XR CHEST 2V PA LATERAL EXAM: XR CHEST 2V PA LATERAL CLINICAL HISTORY: posterior pain TECHNIQUE: 2D digital imaging was performed. COMPARISON: CT CT CHEST WO from 05/28/2021 FINDINGS: MEDIASTINUM: Normal. HEART: Normal. PULMONARY VASCULATURE: Normal. LUNGS: Fibrotic changes, otherwise clear. PLEURAL SPACE: No pleural effusion or pneumothorax. BONE:Old T6 and new T7 compression fractures. Soft tissues: Unremarkable. IMPRESSION: T7 compression fracture of indeterminate age, new since prior chest CT. Clear lungs. No pneumothora x. DATA REPOSITORY: RADIATION DOSE DELIVERED:
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
[2021-07-14] MEDS: Acetaminophen 500 MG TAB 1000 MG PO (10:08)
--- NOTE | 2021-07-14 11:02 | DI.VRAD_ITS ---
PROCEDURE INFORMATION: Exam: XR Lumbosacral Spine Exam date and time: 07/14/2021 10:07 AM Age: 85 years old Clinical indication: Other: Fall, back pain; Patient HX: Fall back pain TECHNIQUE: Imaging protocol: XR of the lumbosacral spine. Views: 2 or 3 views. COMPARISON: CT pelvic wo 09/10/2018 11:51 PM FINDINGS: Bones/joints: Levo rotary scoliosis of the lumbar spine. Multilevel severe degenerative disc disease through the entire lumbar spine. Grade 1-2 anterolisthesis L4-L5. Diffuse facet joint hypertrophy specially L4-L5 and L5-S1. Status post left hip total arthroplasty . No evidence of acute fracture Soft tissues: Unremarkable. Gastrointestinal tract: Distended loops bowel diffusely, ileus or bowel obstruction suspected IMPRESSION: 1. Levo rotary scoliosis with severe multilevel degenerative disc disease. No evidence of acute fracture 2. Distended bowel Dictated and Authenticated by: Yue Naik MD. Ordering:ELIANE Sen MD
--- NOTE | 2021-07-14 11:05 | DI.VRAD_ITS ---
PROCEDURE INFORMATION: Exam: XR Thoracic Spine Exam date and time: 07/14/2021 10:07 AM Age: 85 years old Clinical indication: Other: Fall, back pain TECHNIQUE: Imaging protocol: XR of the thoracic spine. Views: 3 views. COMPARISON: CR XR CHEST 2V PA LATERAL 07/14/2021 10:37 AM and 05/28/2021 CT chest FINDINGS: Bones/joints: S shaped scoliosis of the thoracic and lumbar spine. Compression deformity of T6 unchanged from remote exam. T5 compression fracture new from 2020, loss of approximately 50% vertebral body height. No retropulsion Soft tissues: Unremarkable. Other findings: Bony elements are osteopenic IMPRESSION: T5 compression fracture new from 2020, age indeterminate. Recommend further evaluation clinically. No retropulsion. MRI scan if necessary Dictated and Authenticated by: Yue Naik MD. Ordering:ELIANE Sen MD
--- NOTE | 2021-07-14 11:06 | DI.VRAD_ITS ---
PROCEDURE INFORMATION: Exam: XR Chest Exam date and time: 07/14/2021 10:07 AM Age: 85 years old Clinical indication: Other: Fall, back pain TECHNIQUE: Imaging protocol: XR of the chest. Views: 2 views. COMPARISON: CT CHEST WO 05/28/2021 12:55 PM FINDINGS: Lungs: Mild venous congestion. No focal lung consolidation Pleural spaces: Unremarkable. No pleural effusion. No pneumothorax. Heart/Mediastinum: Stable cardiomegaly Vasculature: Aorta is tortuous and ectatic Bones/joints: Chronic T6 compression fracture. Indeterminate age T5 vertebral body fracture, loss of 50% vertebral body height. No retropulsion. IMPRESSION: No focal lung consolidation T5 vertebral body fracture of indeterminate age Dictated and Authenticated by: Yue Naik MD. Ordering:ELIANE Sen MD
--- NOTE | 2021-07-14 11:08 | DI.VRAD_ITS ---
PROCEDURE INFORMATION: Exam: XR Pelvis Exam date and time: 07/14/2021 10:07 AM Age: 85 years old Clinical indication: Other: Fall, back pain TECHNIQUE: Imaging protocol: XR pelvis. Views: 1 or 2 view. COMPARISON: CT pelvic wo 09/10/2018 11:51 PM FINDINGS: Bones/joints: Left hip total arthroplasty. Degenerative changes lower lumbar spine. Healed inferior right pubic rami fracture. Moderate osteoarthritis right hip. No evidence of acute fracture Soft tissues: Unremarkable. Vasculature: Diffuse vascular calcifications in IMPRESSION: No evidence of acute fracture Dictated and Authenticated by: Yue Naik MD. Ordering:ELIANE Sen MD
[2021-07-14 11:47] VITALS: BP 95/59; PULSE 73; RESP 18; O2SAT 94
== END 2021-07-14 11:48 | disposition home or self-care (01) ==
PROVIDERS: Emergency Provider Emergency Medicine; PCP Nurse Practitioner
DX: S22.050A Wedge compression fracture of T5-T6 vertebra, initial encounter for closed fracture (principal); W01.0XXA Fall on same level from slipping, tripping and stumbling without subsequent striking against object, initial encounter; R07.89 Other chest pain; M54.9 Dorsalgia, unspecified
CPT/HCPCS: 99284; 71046; 72072; 72100; 72170; 99283

== ENCOUNTER 2021-09-16 13:51 | Emergency (ER) | payer MEDICARE, OTHER, SELFPAY ==
[2021-09-16] VITALS (9 sets, daily range): BP systolic 109–142; BP diastolic 68–85; PULSE 85–92; RESP 16–20; TEMP 36.3–36.7; O2SAT 93–99
[2021-09-16 14:49] LABS: Bilirubin Negative (Negative); Blood Moderate (Negative); Clarity Cloudy (Clear); Glucose Negative (Negative); Ketones Negative (Negative); Leukocyte Esterase Moderate (Negative); Nitrite Positive (Negative); Specific Gravity >= 1.030 (1.005-1.025); Urobilinogen 0.2 EU/dL (Up TO 0.2)
[2021-09-16 14:59] LABS: Epithelial Cells Moderate HPF (Negative); RBC 0-2 HPF (0-2); WBC >50 HPF (0-5)
[2021-09-16 15:00] LABS: Bacteria Many HPF (Negative); Crystals Negative HPF (Negative)
--- NOTE | 2021-09-16 15:00 | DI.RAD_ITS ---
Exam(s) XR CHEST 2V PA LATERAL EXAM: XR CHEST 2V PA LATERAL CLINICAL HISTORY: cough, new generalized weakness. TECHNIQUE: 2D digital imaging was performed. COMPARISON: CT CT CHEST WO from 05/18/2020 CR,XR XR CHEST 2V PA LATERAL from 07/14/2021 FINDINGS: 2 views: Mild cardiomegaly. Mediastinum is not widened. Pulmonary venous hypertension pattern. According interstitial pulmonary edema. No airspace pulmonar y edema. No obvious pleural effusions evident. IMPRESSION: Pulmonary venous hypertension pattern. Bordering on interstitial pulmonary edema. No obvious pleura l effusions DATA REPOSITORY: RADIATION DOSE DELIVERED:
--- NOTE | 2021-09-16 15:00 | DI.CT_ITS ---
Exam(s) CT HEAD WO EXAM: CT HEAD WO CLINICAL HISTORY: acute generalized weakness. TECHNIQUE: Imaging Protocol: Axial computed tomography images with coronal and sagittal reformatted images were created and reviewed COMPARISON: CT HEAD WITHOUT CONTRAST from 08/22/2008 FINDINGS: There are no skull fractures nor fluid in the visualized paranasal sinuses. There is no evidence of intracranial hemorrhage, mass effect, or shift of midline structures. There are no extra-axial fluid collections. The ventricles are not enlarged or shifted and there is no blo od within the ventricular system nor within the basal cisterns. There is some mild bilateral periventricular hypodensity consistent with chronic small vessel disease . No obvious acute territorial infarction. IMPRESSION: No acute intracranial findings on this noninfused CT scan of the brain. Chronic white matter ischemic changes. If clinically indicated follow-up MRI with diffusion imaging can be performed. RADIATION DOSE DELIVERED: 792.4mGy.cm Total DLP DATA REPOSITORY: All CT scans at this facility are submitted to the National Radiology Data Registry (NRDR) Dose Index Registry (DIR) with the [employer] ([employer]). RADIATION OPTIMIZATION: All CT scans at this facility use at least one of these dose optimization te chniques: automated exposure control; mA and/or kV adjustment per patient size (includes targeted exa ms where dose is matched to clinical indication); or iterative reconstruction.
[2021-09-16 15:02] LABS: Mucus Trace (Negative); Other Cells Rare Renal (Negative)
[2021-09-16 15:03] LABS: C & S Indicated? No/Sq. Contamination
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
--- NOTE | 2021-09-16 15:15 | RT.EKG_ITS ---
APPROVED REPORT Exam: Resting ECG Reason for Exam: weakness Patient Location: E HR:90 bpm ECG Measurements Heart Rate 90 AXIS NJ 165 P 75 QRSd 98 QRS -61 QT 394 T 62 QTc 482 Conclusion Sinus rhythm...normal P axis, V-rate 60- 99 Left anterior fascicular block...axis(240,-40), init forces inf Probable left ventricular hypertrophy...(RaVL+SV3)xQRSd >300 sinus rhythm at 90, left anterior fascicular block, artifact present, no apparent STEMI, nondiagnosti c EKG
[2021-09-16 15:49] LABS: Abs Immature Grans 0.04 10^3/uL (0.0-0.06); Absolute Basophil Count 0.03 10^3/uL (0.0-0.2); Absolute Eosinophil Count 0.01 10^3/uL (0.0-0.7); Absolute Lymphocyte Count 1.09 10^3/uL (1.2-3.4); Absolute Neutrophil Count 8.38 10^3/uL (1.2-6.7); Basophils % 0.3; Eosinophils % 0.1; HGB 11.8 g/dL (11.2-15.7); Immature Grans % 0.4; MCH 29.4 pg (27.0-33.0); MCHC 31.1 % (32.0-36.0); MCV 94.8 fL (80-95); MPV 9.3 fL (8.0-11.0); Neutrophils % 77.2; Nucleated RBC 0 %; Platelet Count 294 10^3/uL (130-400); RBC 4.01 10^6/uL (3.93-5.22); RDW 12.2 % (11.7-14.6); RDW-SD 43.1 fL; WBC 10.85 10^3/uL (4.4-10.8)
[2021-09-16 16:18] LABS: ALT 14 U/L (14-59); AST 15 U/L (15-37); Albumin 2.9 g/dL (3.4-5.0); Alkaline Phosphatase 114 U/L (46-116); Anion Gap 9.4 mmol/L (3-11); BUN 20 mg/dL (7-18); Bilirubin, Total 0.6 mg/dL (0.2-1.0); CO2 25.6 mmol/L (21.0-32.0); CREATININE 0.7 mg/dL (0.55-1.02); Calcium 8.8 mg/dL (8.5-10.1); Chloride 102 mmol/L (98-107); Glucose 108 mg/dL (74-106); Magnesium 1.8 mg/dL (1.8-2.4); Potassium 3.2 mmol/L (3.5-5.1); Sodium 137 mmol/L (136-145); TSH (W/Ref FT4) 1.26 uIU/mL (0.36-3.74); Total Protein 7.8 g/dL (6.4-8.2); Troponin I < 50 ng/L (<or=60)
[2021-09-16] MEDS: Cephalexin 500 MG CAP PO ×2 (16:27→17:08)
--- NOTE | 2021-09-16 17:04 | NUR.NOTE ---
Dr. Magaña would like referral to f/u PCP for 1 week for UTI.
== END 2021-09-16 17:15 | disposition home or self-care (01) ==
PROVIDERS: Student in an Organized Health Care Education/Training Program; Emergency Provider Emergency Medicine; PCP Nurse Practitioner
DX: N39.0 Urinary tract infection, site not specified (principal); R53.1 Weakness; R05.1 Acute cough; R06.02 Shortness of breath; E03.9 Hypothyroidism, unspecified
CPT/HCPCS: 36415; 80053; 93005; 99285; 70450; 71046; 81003; 81015; 83605; 83735; 84443; 84484; 85025; 93010; 99284

== ENCOUNTER → 2021-11-13 11:03 | Outpatient (BNVA) | payer MEDICARE, OTHER, SELFPAY | PROVIDERS: PCP Nurse Practitioner; Referring Provider Nurse Practitioner; Visit Provider Nurse Practitioner Adult Health | DX: G30.9 Alzheimer's disease, unspecified (principal); F02.80 Dementia in other diseases classified elsewhere, unspecified severity, without behavioral disturbance, psychotic disturbance, mood disturbance, and anxiety; R26.89 Other abnormalities of gait and mobility | CPT/HCPCS: 99213 ==

== ENCOUNTER 2021-12-30 21:04 | Outpatient (REF) | payer MEDICARE, OTHER, SELFPAY ==
[2021-12-30 21:28] LABS: Bilirubin Negative (Negative); Blood Trace-intact (Negative); Clarity Cloudy (Clear); Glucose Negative (Negative); Ketones Negative (Negative); Leukocyte Esterase Moderate (Negative); Nitrite Positive (Negative); Specific Gravity 1.015 (1.005-1.025); Urobilinogen 0.2 EU/dL (Up TO 0.2)
[2021-12-30 21:38] LABS: Bacteria Many HPF (Negative); C & S Indicated? Yes; Crystals Negative HPF (Negative); Epithelial Cells Moderate HPF (Negative); Mucus Negative (Negative); Other Cells Few Renal (Negative); RBC 0-2 HPF (0-2); WBC >50 HPF (0-5)
== END 2021-12-30 21:05 | disposition home or self-care (01) ==
LOC: LBN 21:04
PROVIDERS: PCP Nurse Practitioner; Visit Provider Nurse Practitioner Family
DX: R41.0 Disorientation, unspecified (principal); R82.998 Other abnormal findings in urine; R53.1 Weakness
CPT/HCPCS: 87077; 81003; 81015; 87086; 87186

== ENCOUNTER 2022-01-29 14:47 | Outpatient (REF) | payer MEDICARE, OTHER, SELFPAY ==
[2022-01-29 12:47] LABS: Bilirubin Negative (Negative); Blood Trace-lysed (Negative); Clarity Sl Cloudy (Clear); Glucose Negative (Negative); Ketones Negative (Negative); Leukocyte Esterase Moderate (Negative); Nitrite Negative (Negative); Urobilinogen 0.2 EU/dL (Up TO 0.2); pH 5.5 (5-8)
[2022-01-29 12:53] LABS: Bacteria Few HPF (Negative); C & S Indicated? No/Sq. Contamination; Casts Negative LPF (Negative); Crystals Negative HPF (Negative); Epithelial Cells Moderate HPF (Negative); Mucus Negative (Negative); RBC 0-2 HPF (0-2)
== END 2022-01-29 14:48 | disposition home or self-care (01) ==
LOC: NCHCN 14:47
PROVIDERS: PCP Nurse Practitioner; Visit Provider Nurse Practitioner Family
DX: N39.9 Disorder of urinary system, unspecified (principal)
CPT/HCPCS: 81003; 81015

== ENCOUNTER → 2022-02-10 14:32 | Outpatient (BNVA) | payer MEDICARE, OTHER, SELFPAY | PROVIDERS: PCP Nurse Practitioner; Referring Provider Nurse Practitioner; Visit Provider Nurse Practitioner Adult Health | DX: R26.9 Unspecified abnormalities of gait and mobility (principal); G30.9 Alzheimer's disease, unspecified; F02.80 Dementia in other diseases classified elsewhere, unspecified severity, without behavioral disturbance, psychotic disturbance, mood disturbance, and anxiety | CPT/HCPCS: 99213 ==

== ENCOUNTER 2022-10-09 17:17 | Outpatient (REF) | payer MEDICARE, OTHER, MEDICAID, SELFPAY ==
[2022-10-09 16:04] LABS: Abs Immature Grans 0.02 10^3/uL (0.0-0.06); Absolute Basophil Count 0.04 10^3/uL (0.0-0.2); Absolute Eosinophil Count 0.01 10^3/uL (0.0-0.7); Absolute Lymphocyte Count 1.32 10^3/uL (1.2-3.4); Absolute Monocyte Count 0.86 10^3/uL (0.1-0.8); Absolute Neutrophil Count 5.54 10^3/uL (1.2-6.7); Basophils % 0.5; Eosinophils % 0.1; HCT 39.3 % (36.0-46.0); HGB 12.5 g/dL (11.2-15.7); Immature Grans % 0.3; Lymphocytes % 16.9; MCH 29.5 pg (27.0-33.0); MCHC 31.8 % (32.0-36.0); MCV 93 fL (80-95); MPV 9.7 fL (8.0-11.0); Neutrophils % 71.2; Platelet Count 294 10^3/uL (130-400); RBC 4.24 10^6/uL (3.93-5.22); RDW 13.1 % (11.7-14.6); RDW-SD 43.9 fL; WBC 7.79 10^3/uL (4.4-10.8)
[2022-10-09 16:22] LABS: Anion Gap 6.6 mmol/L (3-11); BUN 19 mg/dL (7-18); CO2 28.4 mmol/L (21.0-32.0); CREATININE 0.8 mg/dL (0.55-1.02); Calcium 9.2 mg/dL (8.5-10.1); Chloride 103 mmol/L (98-107); Estimated GFR 72.16 (mL/min/1.73m2); Glucose 95 mg/dL (74-106); Potassium 3.9 mmol/L (3.5-5.1); Sodium 138 mmol/L (136-145); TSH (W/Ref FT4) 2.34 uIU/mL (0.36-3.74)
[2022-10-09 17:37] LABS: Iron 49 ug/dL (50-170); Total Iron Binding Capacity 207 ug/dL (250-450); Transferrin Sat 24 % (15-50)
== END 2022-10-09 17:18 | disposition home or self-care (01) ==
LOC: NCHCN 17:17
PROVIDERS: PCP Nurse Practitioner Family; Visit Provider Nurse Practitioner Family
DX: E03.9 Hypothyroidism, unspecified (principal); G30.9 Alzheimer's disease, unspecified
CPT/HCPCS: 80048; 83540; 83550; 84443; 85025

== ENCOUNTER 2022-12-08 15:10 | Outpatient (REF) | payer MEDICARE, OTHER, MEDICAID, SELFPAY ==
[2022-12-08 17:46] LABS: Bilirubin Negative (Negative); Blood Large (Negative); Clarity Clear (Clear); Glucose Negative (Negative); Ketones Negative (Negative); Leukocyte Esterase Large (Negative); Nitrite Negative (Negative); Specific Gravity 1.015 (1.005-1.025); Urobilinogen 0.2 mg/dL (Up to 0.2)
[2022-12-08 18:04] LABS: Bacteria Many HPF (Negative); C & S Indicated? No/Sq. Contamination; Casts 0-2 Hyaline LPF (Negative); Crystals Negative HPF (Negative); Epithelial Cells Many HPF (Negative); Mucus Negative (Negative); RBC 20-50 HPF (0-2); WBC >50 HPF (0-5)
== END 2022-12-08 15:11 | disposition home or self-care (01) ==
LOC: NCHCN 15:10
PROVIDERS: PCP Nurse Practitioner Family; Visit Provider Nurse Practitioner Family
DX: R31.9 Hematuria, unspecified (principal)
CPT/HCPCS: 81003; 81015

== ENCOUNTER 2023-01-22 09:16 | Outpatient (REF) | payer MEDICARE, OTHER, MEDICAID, SELFPAY ==
[2023-01-22 16:47] LABS: Bilirubin Negative (Negative); Blood Large (Negative); Glucose Negative (Negative); Ketones Negative (Negative); Leukocyte Esterase Trace (Negative); Nitrite Negative (Negative); Urobilinogen 0.2 mg/dL (Up to 0.2); pH 7.5 (5-8)
[2023-01-22 16:49] LABS: Clarity Cloudy (Clear)
[2023-01-22 18:06] LABS: Bacteria Rare HPF (Negative); Epithelial Cells Moderate HPF (Negative); RBC >50 HPF (0-2)
[2023-01-22 18:07] LABS: C & S Indicated? C&S Done As Ordered; Crystals Few Triple Phos HPF (Negative); Mucus Trace (Negative)
== END 2023-01-22 09:17 | disposition home or self-care (01) ==
LOC: NCHCN 09:16
PROVIDERS: PCP Nurse Practitioner Family; Visit Provider Physician Assistant Medical
DX: R39.89 Other symptoms and signs involving the genitourinary system (principal); R82.998 Other abnormal findings in urine
CPT/HCPCS: 81003; 81015; 87086

== ENCOUNTER 2023-02-26 13:38 | Emergency (ER) | payer MEDICARE, OTHER, MEDICAID, SELFPAY ==
[2023-02-26 13:46] VITALS: BP 114/62; PULSE 86; RESP 18; O2SAT 96
--- NOTE | 2023-02-26 14:00 | DI.RAD_ITS ---
Exam(s) XR WRIST LT COMPLETE EXAM: XR WRIST LT COMPLETE CLINICAL HISTORY: Fall. TECHNIQUE: 2D digital imaging was performed. Three views. COMPARISON: CR,XR XR HAND LT COMPLETE from 03/31/2021 CR XR FINGER LT RING from 05/21/2021 FINDINGS: BONES: Bones appear osteoporotic. Nondisplaced comminuted, intra-articular fracture of the distal ra dius. No angulation. No significant impaction. Nondisplaced ulnar styloid fracture. No bony destr uctive lesion is seen. JOINTS: The carpal bones are normally aligned. Severe degenerative changes 1st carpal metacarpal joint. SOFT TISSUE: Normal. IMPRESSION: Nondisplaced distal radial and ulnar styloid fractures. DATA REPOSITORY: RADIATION DOSE DELIVERED:
--- NOTE | 2023-02-26 14:00 | DI.RAD_ITS ---
Exam(s) XR LUMBAR SPINE COMPLETE EXAM: XR LUMBAR SPINE COMPLETE CLINICAL HISTORY: Fall. TECHNIQUE: 2D digital imaging was performed. Five views. COMPARISON: CR,XR XR LUMBAR SPINE AP, LAT from 07/14/2021 FINDINGS: Exam is limited by overlying stool and bowel gas. BONES: No fracture or destructive lesion. Vertebral body heights are maintained. Multilevel facet hy pertrophy identified. Left hip prosthesis. DISKS: Severe degenerative changes throughout. ALIGNMENT: Lumbar spinal alignment is within normal limits. SOFT TISSUE: Aorta heavily calcified IMPRESSION: Severe degenerative changes. No acute fracture. DATA REPOSITORY: RADIATION DOSE DELIVERED:
--- NOTE | 2023-02-26 14:00 | DI.RAD_ITS ---
Exam(s) XR HIP LT COMPLETE AP PELVIS EXAM: XR HIP LT COMPLETE AP PELVIS CLINICAL HISTORY: Fall. TECHNIQUE: 2D digital imaging was performed. Three views. COMPARISON: CR,XR XR PELVIS AP from 07/14/2021 FINDINGS: BONES: No acute fracture is present. No bony destructive lesion is seen. JOINTS: No dislocation present. The left hip prosthesis is unremarkable. No evidence of fracture o r surrounding bony lucencies. Old inferior pubic ramus fractures noted. SI joints not widened. SOFT TISSUE: Normal. IMPRESSION: Left hip prosthesis appears intact. No acute fracture or dislocation. DATA REPOSITORY: RADIATION DOSE DELIVERED:
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
[2023-02-26] MEDS: Lidocaine 5% Patch 1 PATCH TP (14:14)
[2023-02-26] MEDS: Acetaminophen 325 MG TAB 650 MG PO (14:14)
--- NOTE | 2023-02-26 15:35 | ED.PROG_ITS ---
Date of service: 02/26/23 Time of Service: 15:36 Medical Decision Making I have received signout. I have seen and examined the patient. She is an 87-year-old female brought in by her daughters with whom she lives after she fell in the bathtub at home. She is on hospice but her daughter tells me that she would want a cast. If she needs it. She is not on therapeutic anticoagulants. She is right-hand dominant. She received acetaminophen at 215 this afternoon. She has been able to ambulate. She has a history of a left humeral fracture and previous pelvic fracture. She has been weak for several weeks that the daughters attributed to steroid drops placed in her eyes to remove the film from her cataracts. She has regained most of her strength over the past 2 days. Her daughter tells me that she was given a cane and they think she may have gotten tangled up in it. She fell into a bath/shower with the door. It was not witnessed by the patient's daughter but they did hear her fall. The left wrist does have swelling and a deformity consistent with a distal radius ulna fracture. She is neurovascularly intact. She has a small healing abrasion that she received several days ago prior to the fall. She does not have pain with compression of her pelvis. I am able to externally rotate and lift the right leg without pain. We are still awaiting the results of of her x-rays of her left wrist lumbar spine and right hip and pelvis Imaging Data Radiologic Study: Imaging: X-Ray (Left wrist) Radiologist's impression: Nondisplaced distal radial and ulnar styloid fractures. Radiologic Study #2: Imaging: X-Ray (Left hip and pelvis) Radiologist's impression: Left hip prosthesis appears intact. No acute fracture or dislocation. Radiologic Study #3: Imaging: X-Ray (LS-spine) Radiologist's impression: Severe degenerative changes. No acute fracture. Narrative I have updated the patient and her daughters about fracture. We have elected, after shared decision-making to give her a Velcro splint as opposed to an Ortho- Glass splint, which would be too cumbersome and heavy. This way she will not need a sling. I have advised them that we will have orthopedic follow-up in 7 to 10 days and advised him to return here for any new or worrisome symptoms. They voiced understanding agree with the discharge plan. All their questions and concerns were addressed prior to discharge Sign Out Sign Out Data: Sign Out Comment: 87 yo female with PMHx Alzheimer's dementia, at mental baseline, here after unwitnessed mechanical fall at home. Here with daughters who is primary caregiver. C/O left wrist, left hip and low back pain. Was ambulatory after fall. Denies hitting head or loss of consciousness, no focal neuro deficits. Pending X-ray results, re-eval, and disposition Last updated by Pascale Headley NP at 02/26/23 15:31 Discharge Plan Disposition Patient Disposition: Home Discharge Details Chief Complaint: Fall/Non TraumaCriteria Clinical Impression: Fracture of distal end of left radius and ulna, Fall from ground level, Arthritis of lumbar spine, Contusion of hip, left Primary Care Provider: YVONNE HAYES ED Provider: Jluienne Ortega Home Meds and New Rx's Prescriptions: No Action Spiriva Respimat 1.25 mcg/actuation mist 2 puff inhalation DAILY albuterol 90 mcg/actuation aerosol 90 mcg IH PRN PRN loratadine [Allergy Relief (loratadine)] 10 mg tablet 10 mg PO DAILY vitamin A-vitamin C-vit E-min Tablet 1 tab PO DAILY ibuprofen [Advil] 200 mg tablet 200 mg PO Q6H PRN levothyroxine 100 mcg capsule 100 mcg PO DAILY banana [id number]. Powder In Packet 1 packet PO DAILY acetaminophen 650 mg suppository [address] Q6H PRN (Reason: fever, mild pain) Qty: 6 0RF Rx Instructions: Hospice Patient hyoscyamine sulfate 0.125 mg tablet,disintegrating 0.125 - 0.25 mg PO Q4H PRN (Reason: secretions) Qty: 24 0RF Rx Instructions: Hospice Patient haloperidol lactate 2 mg/mL concentrate 1 mg PO Q6H PRN (Reason: agitation) Qty: 15 0RF Rx Instructions: Hospice Patient prochlorperazine maleate 10 mg tablet 10 mg PO Q6H PRN (Reason: nausea and vomiting) Qty: 6 0RF Rx Instructions: Hospice Patient bisacodyl [Dulcolax (bisacodyl)] 10 mg suppository [address] daily PRN (Reason: constipation) Qty: 2 0RF Rx Instructions: Hospice Patient Insert [address] Daily PRN constipation (no BM in 3 days) MediHoney (honey) 80 % gel 1 applic topical BID PRN (Reason: wound healing) Qty: 15 2RF morphine concentrate 100 mg/5 mL (20 mg/mL) solution 5 - 20 mg PO Q1-4H MDD 5 mL PRN (Reason: moderate to severe pain or shortness of breath) Qty: 30 0RF Rx Instructions: Hospice Patient lorazepam 1 mg tablet 1 mg PO Q4H PRN (Reason: anxiety, PEREZ or nausea) Qty: 6 5RF Rx Instructions: Hospice Patient Discharge Instructions Instructions: Wrist Fracture in Adults (ED), Fall Prevention for Older Adults (ED) Additional Instructions: 1. You should be contacted by the orthopedic office for follow-up appoint within 7 to 10 days. 2. Leave the splint on unless you are bathing or washing. 3. Take acetaminophen as needed for pain. 4. Return to the emergency department for any new or worrisome symptoms such as dizziness confusion or any new complaints. Discharge Data Discharge Physician: Julienne Ortega
[2023-02-26 16:46] VITALS: BP 108/60
--- NOTE | 2023-02-28 07:58 | NUR.NOTE ---
Accessed chart to complete the ortho paper work. Needed to know location of injury. Nursing Note:
== END 2023-02-26 17:01 | disposition home or self-care (01) ==
PROVIDERS: Emergency Provider Emergency Medicine Emergency Medical Services; PCP Nurse Practitioner Family
DX: S52.572A Other intraarticular fracture of lower end of left radius, initial encounter for closed fracture; S52.615A Nondisplaced fracture of left ulna styloid process, initial encounter for closed fracture; M54.50 Low back pain, unspecified; M25.532 Pain in left wrist; W19.XXXA Unspecified fall, initial encounter; Y92.002 Bathroom of unspecified non-institutional (private) residence as the place of occurrence of the external cause; Z96.642 Presence of left artificial hip joint; G30.9 Alzheimer's disease, unspecified; F02.80 Dementia in other diseases classified elsewhere, unspecified severity, without behavioral disturbance, psychotic disturbance, mood disturbance, and anxiety
CPT/HCPCS: 29125; 99284; 72110; 73110; 73502

== ENCOUNTER 2023-03-12 18:42 | Outpatient (CLI) | payer MEDICARE, OTHER, MEDICAID, SELFPAY ==
--- NOTE | 2023-03-12 15:20 | DI.RAD_ITS ---
Exam(s) XR WRIST LT COMPLETE EXAM: XR WRIST LT COMPLETE CLINICAL HISTORY: F/U FRACTURE. TECHNIQUE: 2D digital imaging was performed. COMPARISON: CR XR WRIST LT COMPLETE from 02/26/2023 FINDINGS: 3 views Again noted is the fracture of distal radius and base of the ulnar styloid out significant displaceme nt. Minimal impaction. No significant ulnar variance. Scaphoid and scapholunate distance are intac t. Degenerative changes at the 1st carpometacarpal joint are again noted. IMPRESSION: Stable appearance. DATA REPOSITORY: RADIATION DOSE DELIVERED:
== END 2023-03-12 18:43 | disposition home or self-care (01) ==
LOC: DIORS 03-21 18:43
PROVIDERS: PCP Nurse Practitioner Family; Referring Provider Nurse Practitioner Family
DX: S52.502A Unspecified fracture of the lower end of left radius, initial encounter for closed fracture (principal); S52.602A Unspecified fracture of lower end of left ulna, initial encounter for closed fracture; W19.XXXA Unspecified fall, initial encounter
CPT/HCPCS: 99213; 73110